=== PATIENT | male | born 1950 | race Caucasian/White ===

== ENCOUNTER → 2017-08-12 | Outpatient (CLI) | payer OTHER, MEDICARE | LOC: BHFA 14:00 | PROVIDERS: ATTEND Internal Medicine Cardiovascular Disease | DX: I48.92 Unspecified atrial flutter (principal) ==

== ENCOUNTER 2017-10-20 08:26 | Day surgery (SDC) | payer OTHER, MEDICARE ==
[2017-10-20] MEDS ORDERED: ATROPINE SULFATE 1 MG/10 ML SYR IVP ONE (08:31)
[2017-10-20] MEDS ORDERED: fentaNYL 100 MCG/2 ML INJ IVP ONE (08:31)
[2017-10-20] MEDS ORDERED: MIDAZOLAM 2 MG/2 ML VIAL IVP ONE (08:31)
[2017-10-20] MEDS ORDERED: BENZOCAINE UNIT DOSE SPRAY HURRICAINE MM ONE (08:31)
[2017-10-20] MEDS ORDERED: NS 500 ML IV ONE (08:31)
--- NOTE | 2017-10-20 08:49 | CPEKG ---
Heart Rate: 93 RR Interval: 645 QRSD Interval: 94 QT Interval: 484 QTC Interval: 603 QRS [place]: -5 T Wave [place]: -85 EKG Severity - ABNORMAL ECG - EKG Impression: ATRIAL FIBRILLATION EKG Impression: VENTRICULAR BIGEMINY EKG Impression: ABNORMAL T, PROBABLE ISCHEMIA, WIDESPREAD EKG Impression: BORDERLINE ST ELEVATION, INFERIOR LEADS EKG Impression: PROLONGED QT INTERVAL Electronically Signed By: Figueroa Falcon 20-Oct-2017 09:29:52
[2017-10-20 09:10] LABS: INR 2.38 (0.83-1.16)
--- NOTE | 2017-10-20 10:04 | PDANEPAE ---
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, repaired surgically at age 9 - Pulmonary History Hx COPD: No Hx Recent Upper Respiratory Infection: No Hx Sleep Apnea: No - Other Health History Other Health History: Gout ANE Review of Systems Review of Systems: - Exercise capacity Exercise capacity: >=4 METS ANE Patient History - Allergies Allergies/Adverse Reactions: Sulfa (Sulfonamide Antibiotics) Allergy (Verified 10/06/17 15:23) - Home Medications Home medications: home medication list seen and reviewed Home Medications: Aspirin [Aspirin 81mg (*)] 81 mg PO DAILY 10/20/17 [Last Taken 10/19/17] Lisinopril 20 mg PO 10/20/17 [Last Taken 10/19/17] Metformin HCl [Fortamet] 500 mg PO DAILY 10/20/17 [Last Taken 10/19/17] Warfarin Sodium [Coumadin 5MG (*)] 5 mg PO DAILY16 10/20/17 [Last Taken 10/19/17 ] - NPO status NPO Status: no food or drink >8 hours - Anes Hx Anes Hx: no prior problems - Smoking Hx Smoking Status: Never smoked - Alcohol Use Alcohol Use: Rarely - Family Anes Hx Family Anes Hx: none ANE Labs/Vital Signs - Labs Result Diagrams: 10/20/17 08:16 - Vital Signs Vital Signs: reviewed preoperatively; see RN documention for details Height: 162.56 cm Weight: 58.967 kg ANE Physical Exam - Airway Neck exam: FROM Mallampati Score: Class 2 Mouth exam: normal dental/mouth exam - Pulmonary Pulmonary: no respiratory distress, clear to auscultation - Cardiovascular Cardiovascular: regular rate and rhythym, no murmur, rub, or gallop - ASA Status ASA Status: III ANE Anesthesia Plan Anesthesia Plan: GA with mask
[2017-10-20] MEDS ORDERED: PROPOFOL/EMULSION 500 MG/50 ML BOTTLE IV ONE (10:08)
--- NOTE | 2017-10-20 10:09 | PDHPUP ---
History & Physical Update H&P update statement: This history and physical update is based on an assessment of the patient which was completed after admission or registration (within 24 hours), but prior to the surgery/procedure. H&P update: H&P reviewed & patient examined, no change in patient's condition since H&P completed (Reviewed my office note from earlier this month)
--- NOTE | 2017-10-20 10:44 | CPIP ---
[f rep st] INVASIVE CARDIAC PROCEDURE DATE OF PROCEDURE: 10/20/2017 The patient presented for a ARABELLA-guided cardioversion. He was anxious about the cardioversion and, th erefore, only the ARABELLA was performed. /[id number]/MODL
--- NOTE | 2017-10-20 10:49 | POSTANESTH ---
Post Anesthetic Evaluation Cardiovascular Status: Normal, Stable, Similar to Pre-Op Cond Respiratory Status: Normal, Stable, Similar to Pre-op Cond. Level of Consciousness/Mental Status: Can Participate in Eval, Alert and Oriented Pain Control: Adequate, Prn Tx Ordered Nausea/Vomiting Control: Adequate, Prn Tx Ordered Complications Possibly Related to Anesthesia: None Noted
--- NOTE | 2017-10-22 08:34 | ECHO ---
[email or web address] [address] [address] Main: [phone] Fax: Transesophageal Echocardiography Name: ROSELINE NIELSEN MR#: [id number] Study Date: 10/20/2017 Study Time: 10:09 AM Date of : 1950 Age: 67 year(s) Height: ( ) Weight: ( ) BSA: Gender: Male Examination: ARABELLA Indication: TAPVR Image Quality: Contrast: Requested by: Luz Duque Heart Rate: Rhythm: BP: / Procedure Staff Table Operator: Lenin Tovar RDCS Reading Physician: Luz Duque MD Requesting Provider: Luz Duque MD ARABELLA Exam Details Conclusions: Normal global systolic LV function. No regional wall motion abnormality. Moderately dilated right ventricle. Moderately reduced RV function. No pulmonary vein ostia were demonstrated . No thrombus in left appendage. The right atrium is moderately dilated. The SVC is dilated. The mid interatrial septum is thickened consistent with prior cardiac surgery (correction of TAPVR). In the bicaval view, interatrial baffle with laminar flow is seen. Bubble study demonstrates expected flow from RA to LA. No obvious baffle leak . Moderate to severe tricuspid valve regurgitation. The pulmonary artery pressure is moderately to severely increased. Estimated PA systolic pressure is 61 mmHg. The patient declined DCCV at this time Measurements: Chambers Valvular Assessment AV/MV Valvular Assessment TV/PV Normal Normal Normal Name Value Range Name Value Range Name Value Range TR Vmax: 3.57 mm/s ( - ) TR PGmax: 51 mmHg ( - ) syst. PAP: 61 mmHg ( - ) Additional Measurements: Patient: ROSELINE NIELSEN Study Date: 10/20/2017 Page 1 of 2 10:09 AM Valvular Assessment TV/PV Name Value CVP (est.): 10 mmHg Findings: Left Ventricle: Normal global systolic LV function. No regional wall motion abnormality. Right Ventricle: Moderately dilated right ventricle. Moderately reduced RV function. Left Atrium: No pulmonary vein ostia were demonstrated . Left Atrial Appendage: No thrombus in left appendage. Right Atrium: The right atrium is moderately dilated. The SVC is dilated. The mid interatrial septum is thickened consistent with prior cardiac surgery (correction of TAPVR). In the bicaval view, interatrial baffle with laminar flow is seen. Bubble study demonstrates expected flow from RA to LA. No obvious baffle leak . Mitral Valve: The mitral valve is normal in appearance and function. Aortic Valve: The aortic valve is tri-leaflet. The aortic valve is normal in appearance and function. Tricuspid Valve: Moderate to severe tricuspid valve regurgitation. The pulmonary artery pressure is moderately to severely increased. Estimated PA systolic pressure is 61 mmHg. Pulmonic Valve: The pulmonic valve is normal in appearance and function. Aorta: The aorta is normal. Pericardium: No pericardial effusion. l1n (No Signature Object) Patient: ROSELINE NIELSEN Study Date: 10/20/2017 Page 2 of 2 10:09 AM [id number]
== END 2017-10-20 12:07 | disposition home or self-care (01) ==
LOC: FCATH 08:26
PROVIDERS: ATTEND Internal Medicine Cardiovascular Disease
PROC: B246ZZ4 Ultrasonography of Right and Left Heart, Transesophageal (ICD-10-PCS; principal; 2017-10-20)
DX: I48.92 Unspecified atrial flutter (principal); I07.1 Rheumatic tricuspid insufficiency; I10 Essential (primary) hypertension; I27.20 Pulmonary hypertension, unspecified; Q26.9 Congenital malformation of great vein, unspecified; E11.9 Type 2 diabetes mellitus without complications; M10.9 Gout, unspecified; Z79.01 Long term (current) use of anticoagulants; Z79.82 Long term (current) use of aspirin; Z87.74 Personal history of (corrected) congenital malformations of heart and circulatory system; Z88.2 Allergy status to sulfonamides; Z53.29 Procedure and treatment not carried out because of patient's decision for other reasons
CPT/HCPCS: J2704

== ENCOUNTER 2017-11-24 08:11 | Observation (INO) | payer OTHER, MEDICARE ==
[2017-11-24] MEDS ORDERED: MIDAZOLAM 2 MG/2 ML VIAL IVP ONE (08:13)
[2017-11-24] MEDS ORDERED: NS 500 ML IV ONE (08:13)
[2017-11-24] MEDS ORDERED: fentaNYL 100 MCG/2 ML INJ IVP ONE (08:13)
[2017-11-24] MEDS ORDERED: ATROPINE SULFATE 1 MG/10 ML SYR IVP ONE (08:13)
--- NOTE | 2017-11-24 08:37 | CPEKG ---
Heart Rate: 61 RR Interval: 984 QRSD Interval: 108 QT Interval: 468 QTC Interval: 472 QRS [place]: 48 T Wave [place]: -36 EKG Severity - ABNORMAL ECG - EKG Impression: ATRIAL FLUTTER EKG Impression: VENTRICULAR PREMATURE COMPLEX EKG Impression: INCOMPLETE RIGHT BUNDLE BRANCH BLOCK Electronically Signed By: Neo Fry 24-Nov-2017 15:02:23
[2017-11-24 09:03] LABS: INR 1.41 (0.83-1.16); PROTIME(PATIENT) 17.4 SEC (12.0-15.0)
--- NOTE | 2017-11-24 10:07 | PDANEPAE ---
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, repaired surgically at age 9 - Pulmonary History Hx COPD: No Hx Recent Upper Respiratory Infection: No Hx Sleep Apnea: No - Other Health History Other Health History: Gout ANE Review of Systems Review of Systems: ANE Patient History - Allergies Allergies/Adverse Reactions: Sulfa (Sulfonamide Antibiotics) Allergy (Verified 10/06/17 15:23) - Home Medications Home medications: home medication list seen and reviewed Home Medications: Aspirin [Aspirin 81mg (*)] 81 mg PO DAILY 10/20/17 [Last Taken 10/19/17] Lisinopril 20 mg PO 10/20/17 [Last Taken 10/19/17] Metformin HCl [Fortamet] 500 mg PO BID 10/20/17 [Last Taken 10/19/17] Warfarin Sodium [Coumadin 5MG (*)] 2.5 mg PO DAILY16 10/20/17 [Last Taken 18:00] - NPO status NPO Status: no food or drink >8 hours - Anes Hx Anes Hx: no prior problems - Smoking Hx Smoking Status: Never smoked ANE Labs/Vital Signs - Labs Result Diagrams: 11/24/17 08:45 - Vital Signs Height: 162.56 cm Weight: 59.421 kg ANE Physical Exam - Airway Neck exam: decreased ROM Mallampati Score: Class 2 Mouth exam: poor dentition - Pulmonary Pulmonary: no respiratory distress - Cardiovascular Cardiovascular: irregularly irregular - ASA Status ASA Status: III (very poor dentition) ANE Anesthesia Plan Anesthesia Plan: GA with mask (RBA discussed including elevated risk of dental injury given poor dentition)
[2017-11-24] MEDS ORDERED: LIDOCAINE 2% 100 MG/5 ML SYR ONE (10:08)
[2017-11-24] MEDS ORDERED: PROPOFOL 200 MG/20 ML VIAL ONE (10:08)
--- NOTE | 2017-11-24 10:14 | PDGENHP ---
History & Physical Chief Complaint: Atrial flutter. Congenital heart disease History of Present Illness: 67-year-old male with congenital heart disease. 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 He has hypertension and atrial flutter with slow ventricular response. He has been evaluated at the [facility] in [place] and further management with an MRI and right heart catheterization is pending. However, he does require cardioversion prior to his cardiac MRI. He will require ARABELLA prior to cardioversion as his INR today is 1.4. Pertinent Past, Social, Family History: reviewed Relevant Physical Exam: RRR soft holosystolic murmur LLSB Cardiorespiratory Assessment: stable. Evaluate by anesthesia.
--- NOTE | 2017-11-24 10:41 | PDTEE1 ---
ARABELLA Cardioversion Procedure Procedure: electrical cardioversion, transesophageal echo Indications: other (Atrial flutter) Consent: signed and in chart Anticoagulation: warfarin Procedural Details: Sedation provided by the anesthesia service. Pads were placed in anterior- posterior position. ARABELLA probe was advanced and standard images obtained. There is no evidence of left atrial or left atrial appendage thrombus. Synchronized cardioversion attempt #1: 200J Results: other (Intermittent junctional escape and ectopic atrial rhythm.) Conclusions: successful ARABELLA cardioversion
--- NOTE | 2017-11-24 10:50 | CPEKG ---
Heart Rate: 50 RR Interval: 1200 P-R Interval: 196 QRSD Interval: 106 QT Interval: 512 QTC Interval: 467 P [place]: -83 QRS [place]: 48 T Wave [place]: 34 EKG Severity - ABNORMAL ECG - EKG Impression: ECTOPIC ATRIAL RHYTHM EKG Impression: INCOMPLETE RIGHT BUNDLE BRANCH BLOCK Electronically Signed By: Neo Fry 24-Nov-2017 15:01:23
[2017-11-24] MEDS ORDERED: ACETAMINOPHEN 325 MG TAB PO PRN (11:15)
[2017-11-24] MEDS ORDERED: ENOXAPARIN 60 MG/0.6 ML SYR SC ONE (11:15)
[2017-11-24] MEDS ORDERED: PROTOCOL MAGNESIUM 1 DOSE IV PRN (13:58)
--- NOTE | 2017-11-24 15:16 | ECHO ---
[email or web address] [address] [address] Main: [phone] Fax: Transesophageal Echocardiography Name: ROSELINE NIELSEN MR#: [id number] Study Date: 11/24/2017 Study Time: 09:50 AM Date of : 1950 Age: 67 year(s) Height: ( ) Weight: ( ) BSA: Gender: Male Examination: ARABELLA Indication: Pre Cardioversion, TAPVR Image Quality: Contrast: Requested by: Luz Duque Heart Rate: Rhythm: BP: / Procedure Staff Enterprise Systems Manager: Lenin Tovar RDCS Reading Physician: Luz Duque MD Requesting Provider: ARABELLA Exam Details Conclusions: Normal global systolic LV function. Moderately dilated right ventricle. Moderately reduced RV function. The interatrial septum is thickened consistent with post operative changes. A bubble study shows a small amount of right to left shunting. There is a baffle seen in the LA. . No thrombus in left appendage. The right atrium is moderately dilated. Mild mitral valve regurgitation is present. Moderate to severe tricuspid valve regurgitation. Moderate pulmonic valve regurgitation is noted. Proceed with cardioversion Measurements: Chambers Valvular Assessment AV/MV Valvular Assessment TV/PV Normal Normal Normal Name Value Range Name Value Range Name Value Range Additional Measurements: Findings: Left Ventricle: Normal global systolic LV function. Right Ventricle: Patient: ROSELINE NIELSEN Study Date: 11/24/2017 Page 1 of 2 09:50 AM Moderately dilated right ventricle. Moderately reduced RV function. Left Atrium: The interatrial septum is thickened consistent with post operative changes. A bubble study shows a small amount of right to left shunting. There is a baffle seen in the LA. . Left Atrial Appendage: No thrombus in left appendage. Right Atrium: The right atrium is moderately dilated. Mitral Valve: Mild mitral valve regurgitation is present. Aortic Valve: The aortic valve is tri-leaflet. The aortic valve is normal in appearance and function. Tricuspid Valve: Moderate to severe tricuspid valve regurgitation. Pulmonic Valve: Moderate pulmonic valve regurgitation is noted. Aorta: Minimal plaque in the descending aorta. Pericardium: No pericardial effusion. Exam Comments: l1n (No Signature Object) Patient: ROSELINE NIELSEN Study Date: 11/24/2017 Page 2 of 2 09:50 AM [id number]
[2017-11-24] MEDS ORDERED: WARFARIN SODIUM 5 MG TAB PO SCH (17:00)
[2017-11-24] MEDS: metFORMIN HCL 500 MG TAB PO SCH (17:29)
[2017-11-24] MEDS: ENOXAPARIN 60 MG/0.6 ML SYR SC SCH (21:34)
[2017-11-25 04:38] LABS: INR 1.51 (0.83-1.16); PROTIME(PATIENT) 18.4 SEC (12.0-15.0)
[2017-11-25 05:14] LABS: PLATELET COUNT 130 10^3/uL (150-400)
[2017-11-25] MEDS ORDERED: LISINOPRIL 20 MG TAB PO SCH (06:00)
[2017-11-25 07:07] VITALS: BP 161/75
[2017-11-25] MEDS ORDERED: MAGNESIUM SULF 1 GM/DEXTROSE 100 ML IV ONE (07:10)
[2017-11-25] MEDS: metFORMIN HCL 500 MG TAB PO SCH (07:43)
[2017-11-25] MEDS ORDERED: CHOLECALCIFEROL VIT D3 2,000 UNITS TAB/CAP PO SCH (09:00)
[2017-11-25] MEDS: ENOXAPARIN 60 MG/0.6 ML SYR SC SCH (10:45)
--- NOTE | 2017-11-25 11:02 | ASDISCHSUM ---
Discharge Information Plan Status:Home with No Needs Medically Cleared to Leave:11/25/2017 Discharge Date:11/25/2017 CM D/C Disposition:Home, Routine, Self-Care ADT D/C Disposition:Home, Routine, Self-Care Projected Discharge Date:11/25/2017 Transportation at D/C: Discharge Delay Reason: Follow-Up Date:11/25/2017 Discharge Slot: Final Diagnosis: Placement Information Patient Contact Information Contact Name:SANJAY Relationship: Address:[address] Work Phone: City:[facility] Alternate Phone: [facility]/Zip Code:[place] [address] Email: Financial Information Financial Class:Medicare Primary Plan Desc:MEDICARE OUTPATIENT Primary Plan Number:[id number] Secondary Plan Desc:LEONARD/JOSE SUPPLEMENT Secondary Plan Number:[id number] Assessment Information LACE LACE Length of stay for Answers: Less than 1 day current admission Acuity / Level of Answers: No Care: Did the patient have an inpatient admission? Comorbidities - select Answers: Other Notes: aflutter, congenital all that apply heart disease, HTN # of Emergency department Answers: 1-2 visits in the last 6 months Score: 2 Date Signed: 11/25/2017 11:00 AM Electronically Signed By:Jessie Lama RN Intervention Information Intervention Type:*RAD-Signed Date of Service:11/25/2017 10:14 AM Patient Type:Observation Staff Member:Allie Lofton Hours: Discipline: Severity: Comment:
--- NOTE | 2017-11-25 12:51 | GDS ---
[f rep st] DISCHARGE SUMMARY DIAGNOSIS: Atrial fibrillation. DISCHARGE DIAGNOSIS: Status post successful atrial fibrillation. COURSE OF HOSPITALIZATION: This gentleman is a 67-year-old male who has known congenital heart disea se. He is followed by the [facility] in [place]. 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 He has known hypertension. On admission, he had atrial flutter with slow ventricular response. Through the [facility], he is to have a cardiac MRI and right heart catheterization. P rior to the cardiac MRI, a required cardioversion is necessary. This had been communicated to Dr. Yg Duque by the [facility] in [place]. She did take him to the [facility], where he had a ARABELLA followed by successful cardioversion. On admit, 11/24/2017, his INR was 1.4. He is on warfar in for anticoagulation and is followed regularly in the anticoagulation Clinic. His Coumadin has bee n increased to 3 mg daily and he will have an INR on 11/27/2017, at the [facility] anticoagulation Clinic. He is bridged on Lovenox and will continue on Lovenox bridge until his C oumadin reaches 2.0. At this time, he currently is stable for discharge. PHYSICAL EXAMINATION: VITAL SIGNS: On day of discharge, his blood pressure is 161/75, heart rate 52 with PVCs noted, oxygen saturation 93% on room air, temperature 36.4. HEART: Rate is regular with ectopy. No murmurs, rubs, or gallops are noted. No peripheral edema. LUNGS: Sounds are clear to a uscultation. No wheezes, rales, or rhonchi. DISCHARGE PLAN: He will go home on Coumadin 3 mg daily with a Lovenox bridge of 60 mg twice daily un til his INR reaches 2.0. He will have his Coumadin level checked on Thursday at the [facility] anticoagulation Clinic. He does have an appointment with his [place] broadcast operations director next week wh o will continue to follow him. He does have hypertension with his systolic ranging from 126-161. He will monitor his blood pressure at home and follow up with his primary care physician, Dr. Harper in [place]. At this time, he currently is stable for discharge. /[id number]/MODL
[2017-11-25] MEDS ORDERED: WARFARIN SODIUM 3 MG TAB PO SCH (16:00)
== END 2017-11-25 11:58 | disposition home or self-care (01) ==
LOC: FCATH 08:11 → F2W 11:16
PROVIDERS: ADMIT Internal Medicine Cardiovascular Disease; ATTEND Internal Medicine Cardiovascular Disease
PROC: B245ZZ4 Ultrasonography of Left Heart, Transesophageal (ICD-10-PCS; principal; 2017-11-24)
PROC: 5A2204Z Restoration of Cardiac Rhythm, Single (ICD-10-PCS; principal; 2017-11-24)
DX: I48.91 Unspecified atrial fibrillation (principal); I34.0 Nonrheumatic mitral (valve) insufficiency; I50.9 Heart failure, unspecified; Z79.01 Long term (current) use of anticoagulants; Z87.798 Personal history of other (corrected) congenital malformations
CPT/HCPCS: J0461; J1650; J2001; J2704

== ENCOUNTER → 2018-01-22 | Outpatient (CLI) | payer OTHER, MEDICARE ==
[~2018-01-22] MED LIST: IOPAMIDOL (ISOVUE 370) 100 ML BTL IV ONE
== END ==
LOC: FIMAGING 08:22
PROVIDERS: ATTEND Internal Medicine Cardiovascular Disease
DX: R91.1 Solitary pulmonary nodule (principal); I26.09 Other pulmonary embolism with acute cor pulmonale; R59.0 Localized enlarged lymph nodes; N28.89 Other specified disorders of kidney and ureter
CPT/HCPCS: 71275; Q9967; 82565-PO

== ENCOUNTER 2018-03-04 11:40 | Inpatient (IN) | payer OTHER, MEDICARE ==
[2018-03-04] MEDS ORDERED: NS 1,000 ML IV ONE ×2 (11:54→13:02)
--- NOTE | 2018-03-04 11:59 | EDPHY ---
H & P Stated Complaint: n/v x 1 day, at clinic pt hr dropping into 30's - call ems, no pain/sob Time Seen by Provider: 03/04/18 11:53 HPI/ROS: CHIEF COMPLAINT: Vomiting, abdominal pain HISTORY OF PRESENT ILLNESS: 67-year-old male with diabetes presents with vomiting and abdominal pain. Onset of vomiting at 0600 this morning. Unable to tolerate oral fluids. Onset of generalized abdominal pain, starting 2 hr prior to arrival. Seen at the [facility] and transported to the ED by ambulance. Fentanyl 50 mcg IV and Zofran 4 mg IV prior to arrival. Abdominal pain and nausea have now resolved. In transport, the patient had episodes of bradycardia down to the 30s. Pacemaker was placed 1 month ago. REVIEW OF SYSTEMS: complete 10 point ROS negative except at noted in the HPI - Medical/Surgical History Hx Asthma: No Hx Chronic Respiratory Disease: No Hx Diabetes: Yes Hx Cardiac Disease: Yes Hx Renal Disease: No Hx Cirrhosis: No Hx Alcoholism: No Hx HIV/AIDS: No Hx Splenectomy or Spleen Trauma: No Other PMH: HTN, hyperlipidemia, DM2, congenital heart defect and repair, A-fib/ flutter, PE, pacemaker placement - Social History Smoking Status: Never smoked - Physical Exam Exam: General Appearance: Alert, pleasant Eyes: Pupils equal and round, no conjunctival pallor or injection ENT, Mouth: Poor dentition, Mucous membranes moist Neck: Normal inspection Respiratory: Ecchymoses on anterior chest wall, Lungs are clear to auscultation Cardiovascular: Regular rate and rhythm Gastrointestinal: Abdomen is soft, mild epigastric tenderness Neurological: A&O, nonfocal exam Skin: Warm and dry Extremities: Nontender, no pedal edema Psychiatric: Mood and affect normal Constitutional: Initial Vital Signs Temperature (C) 36.4 C 03/04/18 11:45 Heart Rate 81 03/04/18 11:45 Respiratory Rate 18 03/04/18 11:45 Blood Pressure 128/76 H 03/04/18 11:45 O2 Sat (%) 92 03/04/18 11:45 O2 Delivery Mode Nasal Cannula O2 (L/minute) 1.5 Allergies/Adverse Reactions: Sulfa (Sulfonamide Antibiotics) Allergy (Verified 03/04/18 11:50) Fever Home Medications: Medication Instructions Recorded Aspirin [Aspirin 81mg (*)] 81 mg PO DAILY 10/20/17 Cholecalciferol Vit D3 [Vitamin D3 2,000 units PO DAILY 11/24/17 2000 units tab (OTC)] Lisinopril [Zestril 20 mg (*)] 20 mg PO DAILY06 11/24/17 Warfarin Sodium [Coumadin 3MG (*)] 3 mg PO DAILY@16 01/14/18 Acetaminophen [Tylenol 325mg (*)] 650 mg PO Q4HRS PRN tab 02/10/18 Indomethacin [Indocin 25 mg (*)] 25 mg PO PRN PRN 03/04/18 Warfarin Sodium [Coumadin 1MG (*)] 0.5 mg PO MOWEFRSA 03/04/18 metFORMIN HCL [Metformin HCl] 500 mg PO BIDMEAL 03/04/18 Medical Decision Making - Diagnostics EKG Interpretation: EKG interpreted by me reveals Imaging Results: Right upper quadrant ultrasound read by the radiologist reveals acalculous cholecystitis. Imaging: I viewed and interpreted images myself ED Course/Re-evaluation: This patient presents with vomiting and abdominal pain, now better after IV Zofran and fentanyl. Abdominal exam is benign. Will observe. He also experienced episodes of bradycardia in transport. Stat EKG reveals no evidence of ischemia or dysrhythmia. The pacemaker rep was called for pacemaker interrogation. 1220: [facility] interrogated pacemaker. Pacemaker functioning normally. 1pm: lipase elevated, c/w pancreatitis, d/w pt. No prior h/o pancreatitis and not a heavy drinker. IV normal saline 1 L given. RUQ sono ordered. The hospitalist service was consulted for admission. Troponin elevated, EKG reviewed again and reveals no evidence of ischemia. No chest pain or shortness of breath. Will certainly need further cardiac evaluation. Will admit to PCU. Differential Diagnosis: Differential diagnosis includes though it is not limited to appendicitis, cholecystitis, diverticulitis, pyelonephritis, bowel perforation, small bowel obstruction, ACS. - Data Points Laboratory Results: Laboratory Results 03/05/18 02:28 03/05/18 02:28 Medications Given: Cholecalciferol (Vitamin D) 2,000 units PO DAILY REILLY Stop: 09/01/18 08:59 Last Admin: 03/06/18 09:56 Dose: 2,000 units Hydromorphone HCl (Dilaudid) 0.2 - 1 mg IVP Q2 PRN PRN Reason: Pain, Severe Unable to Take PO Stop: 03/14/18 14:28 Last Admin: 03/05/18 00:22 Dose: 0.5 mg Hydromorphone HCl (Dilaudid) 2 mg PO Q4HRS PRN PRN Reason: Pain, Severe Able to Take PO Stop: 03/14/18 14:28 Last Admin: 03/05/18 23:41 Dose: 2 mg Discontinued Medications Aspirin (Aspirin) 81 mg PO DAILY REILLY Stop: 09/01/18 08:59 Last Admin: 03/05/18 07:53 Dose: 81 mg Fentanyl (Sublimaze) 50 mcg IVP ONCE ONE Stop: 03/04/18 13:25 Last Admin: 03/04/18 13:28 Dose: 50 mcg Sodium Chloride (Ns) 1,000 mls @ 0 mls/hr IV EDNOW ONE; Wide Open PRN Reason: Protocol Stop: 03/04/18 11:55 Last Admin: 03/04/18 12:01 Dose: 1,000 mls Sodium Chloride (Ns) 1,000 mls @ 0 mls/hr IV ONCE ONE; Wide Open PRN Reason: Protocol Stop: 03/04/18 13:03 Last Admin: 03/04/18 13:11 Dose: 1,000 mls Sodium Chloride (Ns) 1,000 mls @ 200 mls/hr IV CONT REILLY Stop: 08/31/18 14:29 Last Admin: 03/05/18 07:07 Dose: 1,000 mls Sodium Bicarbonate 150 meq/ (Dextrose) 1,150 mls @ 50 mls/hr IV CONT [facility] Stop: 09/01/18 08:44 Last Admin: 03/06/18 06:23 Dose: 1,150 mls Calcium Gluconate (Calcium Gluconate 1 Gm (Premix)) 50 mls @ 100 mls/hr IV ONCE ONE Stop: 03/05/18 09:11 Last Admin: 03/05/18 09:17 Dose: Not Given Calcium Gluconate 1 gm/ (Dextrose) 60 mls @ 120 mls/hr IV ONCE ONE Stop: 03/05/18 09:59 Last Admin: 03/05/18 10:18 Dose: 60 mls Phytonadione (Vitamin K) 2.5 mg PO ONCE ONE Stop: 03/06/18 14:03 Last Admin: 03/06/18 14:25 Dose: 2.5 mg Point of Care Test Results: Chemistry 03/04/18 13:55 POC Troponin I 0.39 ng/mL H ng/mL (0.00-0.08) Urine Dip Leukocytes (Negative) Negative Blood (Negative) 1+ Departure - Departure Disposition: [facility] Inpatient Acute Clinical Impression: Elevated troponin Pancreatitis, acute Qualifiers: Pancreatitis type: unspecified pancreatitis type Acute pancreatitis complication: unspecified Qualified Code(s): K85.90 - Acute pancreatitis without necrosis or infection, unspecified Condition: Fair
[2018-03-04 12:24] LABS: PLATELET COUNT 205 10^3/uL (150-400)
[2018-03-04] MEDS ORDERED: fentaNYL 100 MCG/2 ML INJ IVP ONE (13:24)
[2018-03-04] MEDS ORDERED: fentaNYL 100 MCG/2 ML INJ ONE (13:26)
[2018-03-04] MEDS ORDERED: PROMETHAZINE HCL 25 MG TAB PO PRN (14:29)
[2018-03-04] MEDS ORDERED: ONDANSETRON DISINTEGRATING 4 MG TAB PO PRN (14:29)
[2018-03-04] MEDS ORDERED: ONDANSETRON 4 MG/2 ML VIAL IVP PRN (14:29)
[2018-03-04] MEDS ORDERED: PROMETHAZINE HCL 25 MG/ML INJ IVP PRN (14:29)
[2018-03-04] MEDS ORDERED: NS 1,000 ML IV SCH (14:30)
--- NOTE | 2018-03-04 14:56 | CPEKG ---
Test Reason : OPEN Blood Pressure : / mmHG Vent. Rate : 092 BPM Atrial Rate : 152 BPM P-R Int : 232 ms QRS Dur : 100 ms QT Int : 448 ms P-R-T Axes : 102 106 268 degrees QTc Int : 555 ms Afib/flut and V-paced complexes Right axis deviation Low voltage, extremity leads Nonspecific repol abnormality, diffuse leads Prolonged QT interval Confirmed by Oxana Alexander ([id number]) on 03/04/2018 2:55:49 PM Referred By: Confirmed By:Oxana Alexander
--- NOTE | 2018-03-04 16:17 | ECHO ---
[email or web address] [address] [address] Main: [phone] Fax: Transthoracic Echocardiogram Name: ROSELINE NIELSEN MR#: [id number] Study Date: 03/04/2018 Study Time: 02:36 PM Date of : 1950 Age: 67 year(s) Height: 162.6 cm (64 in.) Weight: 55.79 kg (123 lb.) BSA: 1.59 m2 Gender: Male Examination: Echo Indication: elevated troponin Image Quality: Adequate Contrast: Requested by: Drew Shen BP: 144 mmHg/73 mmHg Heart Rate: Rhythm: Indication: elevated troponin Procedure Staff General Education Instructor: Radha Perez RD Reading Physician: Tr Buchanan MD Requesting Provider: Conclusions: No pericardial effusion. There is severe LV dysfunction with ejection fraction at best 34%. There is apical akinesis. There is a moderate to severely dilated right ventricle with decreased RV function. Pacing wire within the right heart. There is severe tricuspid regurgitation with right ventricular systolic pressure of 59 mm of mercury and right atrial enlargement. Exam consistent with a Takotsubo cardiomyopathy. Measurements: Chambers Valvular Assessment AV/MV Valvular Assessment TV/PV Normal Normal Normal Name Value Range Name Value Range Name Value Range Ao Debra (MM): 3.5 cm (2.2 cm-3.7 AV Vmax: 1.05 m/s (1 m/s-1.7 TR Vmax: 3.32 mm/s ( - ) cm) m/s) TR PGmax: 44 mmHg ( - ) IVSd (2D): 0.8 cm (0.6 cm-1.1 AV maxP mmHg ( - ) syst. PAP: 59 mmHg ( - ) cm) LVOT Vmax: 0.74 m/s (0.7 m/s-1.1 PV Vmax: 1.02 m/s (0.6 m/s-0.9 LVDd (2D): 4.6 cm (4.2 cm-5.9 m/s) m/s) cm) GLENN (Vmax): 1.8 cm2 ( - ) PV PGmax: 4 mmHg ( - ) LVDs (2D): 4.0 cm (2.1 cm-4 MV E Vmax: 0.85 m/s ( - ) cm) MV A Vmax: 0.28 m/s ( - ) LVPWd (2D): 0.7 cm (0.6 cm-1 MV E/A: 3.04 ( - ) cm) LVOTd 1.8 cm 1.8 cm mm LVEF (BP): 34 % (>=55 %) RVDd(2D): 4.5 cm (1.9 cm-3.8 cmmm) Continued Measurements: Chambers Valvular Assessment AV/MV Valvular Assessment TV/PV Name Value Name Value Name Value LADs Lon.5 cm MV DecTime: 208 m/s CVP (est.): 15 mmHg Patient: ROSELINE NIELSEN Study Date: 03/04/2018 Page 1 of 2 02:36 PM LA Area: 20.0 cm2 MV E' Septal: 0.07 m/s LA Volume: 58 ml MV E/E' Septal: 12.50 LA Volume Index: 36.5 ml/m2 MV E/E' Lateral: 10.40 TAPSE: 1.6 cm Findings: Left Ventricle: Normal size left ventricle. No LV hypertrophy. Moderately to severely reduced systolic function. EF is 34 %. Unable to assess diastolic dysfunction. Large area of apical hypokinesis (mid george/infero septum, mid anterior, mid anterolateral to apex) consistent with CAD versus Takotsubo. Abnormal septal motion noted. Right Ventricle: Moderate to severely dilated right ventricle. There is a pacemaker lead noted in the right ventricle. Apical hypokinesis with mid to basal RV mildly hypokinetic; CAD versus Brooks's sign. Left Atrium: The left atrium is mildly dilated. Questionable color flow across the IAS Shadowing in the LA most likely from bafle. Right Atrium: The right atrium is severely dilated. There is a pacemaker lead noted in the right atrium. Mitral Valve: The mitral valve is normal in appearance. There is no mitral valve regurgitation. No mitral stenosis is present. Aortic Valve: The aortic valve is normal in appearance. There is no aortic valve regurgitation. No aortic valve stenosis is present. Tricuspid Valve: The tricuspid valve leaflets do not seem to coapt due to RV dilatation. Severe tricuspid regurgitation is present. Right ventricular systolic pressure measures 59mmHg. The pulmonary artery pressure is moderately to severely increased. Pulmonic Valve: Pulmonary valve not well visualized. Moderate pulmonic valve regurgitation is noted. Aorta: Normal size aortic root measuring 3.5 cm. IVC: The IVC is dilated. There is less than 50% respiratory excursion. Pericardium: Trivial pericardial effusion. There is a pleural effusion. (No Signature Object) Patient: ROSELINE NIELSEN Study Date: 03/04/2018 Page 2 of 2 02:36 PM [id number]
--- NOTE | 2018-03-04 16:30 | PDGENHP ---
History and Physical - Chief Complaint Acute vomiting - History of Present Illness Primary care provider: Dr. Giovani Harper Primary golf caddy: Dr. Julius Leonardo HPI: 67-year-old male presenting with acute vomiting characterized as nonbloody emesis with associated abdominal pain and nausea, with onset of symptoms at 6:00 a.m. On the day of presentation and duration persistent thereafter. The patient reports that when he 1st awoke he had profuse, persistent vomiting, and then he noted pain located in the mid epigastric area, characterized as pressure, occurring in waves. He reports that prior to onset of symptoms, he had otherwise had an uneventful evening, and had not been experiencing any GI symptoms prior to going to bed. He reports that he had had a relatively normal evening meal, consisting of a gyro, scrambled eggs, vegetables, luiz bread, no alcohol. He denies any recent additions to his medications. On the day prior to presentation, he underwent CT angiogram and V/ Q scan through [facility]. The patient initially presented to his primary care provider office, where he received 2 L normal saline and Zofran. He was subsequently triaged to the emergency department, and emergency responders reported that his heart rate was in the 30s. The patient received fentanyl and Zofran in the emergency department, and his symptoms were somewhat alleviated. History Information - Allergies/Home Medication List Allergies/Adverse Reactions: Sulfa (Sulfonamide Antibiotics) Allergy (Verified 03/04/18 11:50) Fever Home Medications: Aspirin [Aspirin 81mg (*)] 81 mg PO DAILY 10/20/17 [Last Taken 03/03/18] Cholecalciferol Vit D3 [Vitamin D3 2000 units tab (OTC)] 2,000 units PO DAILY [Last Taken 02/08/18] Lisinopril [Zestril 20 mg (*)] 20 mg PO DAILY06 11/24/17 [Last Taken 02/08/18] Warfarin Sodium [Coumadin 3MG (*)] 3 mg PO DAILY@16 01/14/18 [Last Taken ] Indomethacin [Indocin 25 mg (*)] 25 mg PO PRN PRN 03/04/18 [Last Taken Unknown] Warfarin Sodium [Coumadin 1MG (*)] 0.5 mg PO MOWEFRSA 03/04/18 [Last Taken Unknown] metFORMIN HCL [Metformin HCl] 500 mg PO BIDMEAL 03/04/18 [Last Taken Unknown] I have personally reviewed and updated: family history, medical history, social history, surgical history - Past Medical History diabetes type 2, pulmonary embolism (summer, currently on systemic anticoagulation, most recent INR 1.9 on February 28) Additional medical history: Atrial flutter with DC cardioversion and transesophageal echocardiogram. Severe tricuspid regurgitation. Heart block with permanent pacemaker placed in January of 2018 - Surgical History Additional surgical history: Anomalous pulmonary vein corrected at the age 9. Permanent pacemaker January of 2018 - Family History Additional family history: Father with liver cancer, no family history of venous thromboembolism - Social History Smoking Status: Never smoked Alcohol Use: Occasionally Drug Use: Marijuana Additional social history: Normally independent in his ADLs Review of Systems Review of Systems: ROS: 10pt was reviewed & negative except for what was stated in HPI & below Gastrointestinal: Reports: vomitting, abdominal pain, nausea Physical Exam Physical Exam: Temp Pulse Resp BP Pulse Ox 36.4 C 74 21 H 118/71 91 L 03/04/18 11:45 03/04/18 15:43 03/04/18 15:43 03/04/18 15:43 03/04/18 15:43 O2 (L/minute) 2 Constitutional: no apparent distress, appears nourished, not in pain Eyes: PERRL, anicteric sclera, EOMI Ears, Nose, Mouth, Throat: moist mucous membranes, hearing normal, poor dentition Cardiovascular: systolic murmur (1/6 at the base), No irregularly irregular, No tachycardia, No edema Respiratory: no respiratory distress, no rales or rhonchi, clear to auscultation Gastrointestinal: normoactive bowel sounds, tenderness (Mid epigastric area), No vasquez's sign, No guarding, No distension Genitourinary: no bladder tenderness, other (Bladder fullness) Neurologic: AAOx3, sensation intact bilaterally, No weakness Psychiatric: interacting appropriately, not anxious, not encephalopathic, thought process linear Lab Data & Imaging Review 03/04/18 12:10 03/04/18 12:10 WBC 25.48 10^3/uL (3.80-9.50) H 03/04/18 12:10 RBC 5.02 10^6/uL (4.40-6.38) 03/04/18 12:10 Hgb 15.1 g/dL (13.7-17.5) 03/04/18 12:10 Hct 47.3 % (40.0-51.0) 03/04/18 12:10 MCV 94.2 fL (81.5-99.8) 03/04/18 12:10 MCH 30.1 pg (27.9-34.1) 03/04/18 12:10 MCHC 31.9 g/dL (32.4-36.7) L 03/04/18 12:10 RDW 14.8 % (11.5-15.2) 03/04/18 12:10 Plt Count 205 10^3/uL (150-400) 03/04/18 12:10 MPV 9.7 fL (8.7-11.7) 03/04/18 12:10 Neut % (Auto) Not Reported 03/04/18 12:10 Lymph % (Auto) Not Reported 03/04/18 12:10 Cuming % (Auto) Not Reported 03/04/18 12:10 Eos % (Auto) Not Reported 03/04/18 12:10 Baso % (Auto) Not Reported 03/04/18 12:10 Nucleat RBC Rel Count Not Reported 03/04/18 12:10 Absolute Neuts (auto) Not Reported 03/04/18 12:10 Absolute Lymphs (auto) Not Reported 03/04/18 12:10 Absolute Monos (auto) Not Reported 03/04/18 12:10 Absolute Eos (auto) Not Reported 03/04/18 12:10 Absolute Basos (auto) Not Reported 03/04/18 12:10 Absolute Nucleated RBC Not Reported 03/04/18 12:10 Immature Gran % Not Reported 03/04/18 12:10 Seg Neutrophils % 86.0 % 03/04/18 12:10 Band Neutrophils % 5.0 % 03/04/18 12:10 Lymphocytes % 5.0 % 03/04/18 12:10 Monocytes % 4.0 % 03/04/18 12:10 Eosinophils % 0.0 % 03/04/18 12:10 Basophils % 0.0 % 03/04/18 12:10 Metamyelocytes % 0.0 % 03/04/18 12:10 Myelocytes % 0.0 % 03/04/18 12:10 Promyelocytes % 0.0 % 03/04/18 12:10 Blast Cells % 0.0 % 03/04/18 12:10 Immature Gran # Not Reported 03/04/18 12:10 Absolute Seg Neuts 21.91 10^/uL (1.70-6.50) H 03/04/18 12:10 Absolute Band Neuts 1.27 10^3/uL (0.00-0.70) H 03/04/18 12:10 Absolute Lymphocytes 1.27 10^3/uL (1.00-3.00) 03/04/18 12:10 Absolute Monocytes 1.02 10^3/uL (0.30-0.80) H 03/04/18 12:10 Absolute Eosinophils 0.00 10^3/uL (0.03-0.40) L 03/04/18 12:10 Absolute Basophils 0.00 10^3/uL (0.02-0.10) L 03/04/18 12:10 Absolute Metamyelocyte 0.00 10^3/mL (0.00-0.00) 03/04/18 12:10 Absolute Myelocytes 0.00 10^3/mL (0.00-0.00) 03/04/18 12:10 Absolute Promyelocytes 0.00 10^3/uL (0.00-0.00) 03/04/18 12:10 Absolute Plasma Cells 0.00 10^3/uL (0.00-0.00) 03/04/18 12:10 Nucleated RBCs 0 /100 WBC (0-0) 03/04/18 12:10 Absolute Blast Cells 0.00 10^3/uL (0.00-0.00) 03/04/18 12:10 Plasma Cells % 0.0 % 03/04/18 12:10 Platelet Estimate ADEQUATE (ADEQ) 03/04/18 12:10 Echinocytes 1+ H 03/04/18 12:10 Elliptocytes 1+ H 03/04/18 12:10 Sodium 140 mEq/L (135-145) 03/04/18 12:10 Potassium 4.8 mEq/L (3.3-5.0) 03/04/18 12:10 Chloride 109 mEq/L (97-110) 03/04/18 12:10 Carbon Dioxide 14 mEq/l (22-31) L 03/04/18 12:10 Anion Gap 17 mEq/L (8-16) H 03/04/18 12:10 BUN 32 mg/dL (7-23) H 03/04/18 12:10 Creatinine 1.3 mg/dL (0.7-1.3) 03/04/18 12:10 Estimated GFR 55 03/04/18 12:10 Glucose 196 mg/dL (70-100) H 03/04/18 12:10 Calcium 8.2 mg/dL (8.5-10.4) L 03/04/18 12:10 Total Bilirubin 1.2 mg/dL (0.1-1.4) 03/04/18 12:10 Conjugated Bilirubin 0.5 mg/dL (0.0-0.5) 03/04/18 12:10 Unconjugated Bilirubin 0.7 mg/dL (0.0-1.1) 03/04/18 12:10 AST 58 IU/L (17-59) 03/04/18 12:10 ALT 38 IU/L (21-72) 03/04/18 12:10 Alkaline Phosphatase 49 IU/L (38-126) 03/04/18 12:10 POC Troponin I 0.39 ng/mL (0.00-0.08) H 03/04/18 13:55 Total Protein 6.0 g/dL (6.3-8.2) L 03/04/18 12:10 Albumin 3.7 g/dL (3.5-5.0) 03/04/18 12:10 Lipase 854 IU/L (23-300) H 03/04/18 12:10 Visualized and Interpreted EKG results: Yes EKG Interpretation: Positive for: other (Paced rhythm with PVCs, T-wave inversions inferolaterally, AFib) Assessment & Plan Assessment: 67-year-old male presents with acute abdominal pain and Takaysubo's cardiomyopathy Plan: 1. Abdominal pain. Acute, new problem this provider, further workup indicated. Potential etiologies include acute pancreatitis verses acalculous cholecystitis -ultrasound demonstrating acalculous cholecystitis without any ductal dilatation , unable to fully visualize pancreas -discussed with Dr. marty oglesby, she has recommended HIDA scan for initial evaluation of gallbladder function -monitor liver panel, WBC -if HIDA scan unrevealing, will get CT with IV contrast of the abdomen -hold on surgical consult at this time, as it is not entirely clear whether patient has an issue requiring surgical evaluation -NPO, IV fluids, pain medications 2. Takaysubo cardiomyopathy. Present on echocardiogram, most likely secondary to the stress secondary to the condition above -that being said, discussed with Dr. Tr Buchanan, he and I both agree that cardiac catheterization is indicated if the patient does not have any revealing intra-abdominal pathology 3. Demand ischemia. Acute, troponin 0.39, continue cycle, monitor on telemetry 4. Acute kidney injury. Reviewed outside records including 02/10/2018 discharge summary by Peggy Gross, she reported creatinine level of 0.8 at time of discharge -unclear whether this is contrast induced nephropathy versus hypovolemia in the setting of GI losses -give IV normal saline, monitor strict I&Os, weight, creatinine 5. History of pulmonary embolism. Occurred summer 2017, currently on Coumadin -check INR -hold today's Coumadin dosage in case patient does have a surgical issue -order outside records including CT angiogram V/Q scan from [facility]. NPO with IV fluids Prophylaxis. High risk patient, Lovenox 40 if patient's INR subtherapeutic Code. Full per patient, is POCristian Disposition. Anticipated discharge is 03/05, pending further workup and resolution of above.
[2018-03-04] MEDS ORDERED: SINCALIDE 5 MCG VIAL IV ONE (19:39)
--- NOTE | 2018-03-04 19:55 | PDCARCONS ---
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 This has been complicated by atrial flutter/ sick sinus syndrome with cardioversion and a pacer about two weeks ago.He is admitted to day with acute onset abdominal pain, nausea and vomiting. He was seen yesterday at [place] for pulmonary hypertension and had a VQ scan and CT angiogram with history of recent pulmonary embolism. On arrival to the ER, he had a mild elevation in troponin adn an echocardiogram was ordered. It revealed a new anterior and apical akinetic segment with severe LV dysfunction. His ecg showed paced rhtyhm with t wave inversions inferiorly. There was no st elevation. His pacer show atrial flutter. He has no chest pain on my arrival. No shortness of breath. No PND or orthopnea. No syncope or near syncope. He denies ETOH. He has had no fever or chills No hematemesis or melena. History Information - Allergies/Home Medication List Allergies/Adverse Reactions: Sulfa (Sulfonamide Antibiotics) Allergy (Verified 03/04/18 11:50) Fever Home Medications: Aspirin [Aspirin 81mg (*)] 81 mg PO DAILY 10/20/17 [Last Taken 03/03/18] Cholecalciferol Vit D3 [Vitamin D3 2000 units tab (OTC)] 2,000 units PO DAILY [Last Taken 02/08/18] Lisinopril [Zestril 20 mg (*)] 20 mg PO DAILY06 11/24/17 [Last Taken 02/08/18] Warfarin Sodium [Coumadin 3MG (*)] 3 mg PO DAILY@16 01/14/18 [Last Taken ] Indomethacin [Indocin 25 mg (*)] 25 mg PO PRN PRN 03/04/18 [Last Taken Unknown] Warfarin Sodium [Coumadin 1MG (*)] 0.5 mg PO MOWEFRSA 03/04/18 [Last Taken Unknown] metFORMIN HCL [Metformin HCl] 500 mg PO BIDMEAL 03/04/18 [Last Taken Unknown] I have personally reviewed and updated: medical history, surgical history Past Medical History: - Past Medical History atrial fibrillation, pulmonary embolism - Surgical History Reports: pacemaker/AICD - Family History Positive for: non-pertinent - Social History Smoking Status: Never smoked Alcohol Use: Occasionally Drug Use: Marijuana Physical Exam Physical Exam: Temp Pulse Resp BP Pulse Ox 36.7 C 78 12 108/74 93 03/04/18 16:41 03/04/18 16:41 03/04/18 16:41 03/04/18 16:41 03/04/18 16:41 O2 (L/minute) 2 Constitutional: uncomfortable Eyes: anicteric sclera Ears, Nose, Mouth, Throat: dry mucous membranes Cardiovascular: systolic murmur, irregularly irregular, other (pacer healing in the left subclavein fossa.) Peripheral Pulses: 1+: carotid (R), carotid (L), femoral (R), femoral (L) Respiratory: no respiratory distress, no rales or rhonchi Gastrointestinal: tenderness Skin: warm Neurologic: AAOx3, No facial droop Psychiatric: interacting appropriately Lymph, Heme, Immunologic: no cervical LAD Lab and Imaging 03/04/18 12:10 03/04/18 12:10 WBC 25.48 10^3/uL (3.80-9.50) H 03/04/18 12:10 RBC 5.02 10^6/uL (4.40-6.38) 03/04/18 12:10 Hgb 15.1 g/dL (13.7-17.5) 03/04/18 12:10 Hct 47.3 % (40.0-51.0) 03/04/18 12:10 MCV 94.2 fL (81.5-99.8) 03/04/18 12:10 MCH 30.1 pg (27.9-34.1) 03/04/18 12:10 MCHC 31.9 g/dL (32.4-36.7) L 03/04/18 12:10 RDW 14.8 % (11.5-15.2) 03/04/18 12:10 Plt Count 205 10^3/uL (150-400) 03/04/18 12:10 MPV 9.7 fL (8.7-11.7) 03/04/18 12:10 Neut % (Auto) Not Reported 03/04/18 12:10 Lymph % (Auto) Not Reported 03/04/18 12:10 Amelia % (Auto) Not Reported 03/04/18 12:10 Eos % (Auto) Not Reported 03/04/18 12:10 Baso % (Auto) Not Reported 03/04/18 12:10 Nucleat RBC Rel Count Not Reported 03/04/18 12:10 Absolute Neuts (auto) Not Reported 03/04/18 12:10 Absolute Lymphs (auto) Not Reported 03/04/18 12:10 Absolute Monos (auto) Not Reported 03/04/18 12:10 Absolute Eos (auto) Not Reported 03/04/18 12:10 Absolute Basos (auto) Not Reported 03/04/18 12:10 Absolute Nucleated RBC Not Reported 03/04/18 12:10 Immature Gran % Not Reported 03/04/18 12:10 Seg Neutrophils % 86.0 % 03/04/18 12:10 Band Neutrophils % 5.0 % 03/04/18 12:10 Lymphocytes % 5.0 % 03/04/18 12:10 Monocytes % 4.0 % 03/04/18 12:10 Eosinophils % 0.0 % 03/04/18 12:10 Basophils % 0.0 % 03/04/18 12:10 Metamyelocytes % 0.0 % 03/04/18 12:10 Myelocytes % 0.0 % 03/04/18 12:10 Promyelocytes % 0.0 % 03/04/18 12:10 Blast Cells % 0.0 % 03/04/18 12:10 Immature Gran # Not Reported 03/04/18 12:10 Absolute Seg Neuts 21.91 10^/uL (1.70-6.50) H 03/04/18 12:10 Absolute Band Neuts 1.27 10^3/uL (0.00-0.70) H 03/04/18 12:10 Absolute Lymphocytes 1.27 10^3/uL (1.00-3.00) 03/04/18 12:10 Absolute Monocytes 1.02 10^3/uL (0.30-0.80) H 03/04/18 12:10 Absolute Eosinophils 0.00 10^3/uL (0.03-0.40) L 03/04/18 12:10 Absolute Basophils 0.00 10^3/uL (0.02-0.10) L 03/04/18 12:10 Absolute Metamyelocyte 0.00 10^3/mL (0.00-0.00) 03/04/18 12:10 Absolute Myelocytes 0.00 10^3/mL (0.00-0.00) 03/04/18 12:10 Absolute Promyelocytes 0.00 10^3/uL (0.00-0.00) 03/04/18 12:10 Absolute Plasma Cells 0.00 10^3/uL (0.00-0.00) 03/04/18 12:10 Nucleated RBCs 0 /100 WBC (0-0) 03/04/18 12:10 Absolute Blast Cells 0.00 10^3/uL (0.00-0.00) 03/04/18 12:10 Plasma Cells % 0.0 % 03/04/18 12:10 Platelet Estimate ADEQUATE (ADEQ) 03/04/18 12:10 Echinocytes 1+ H 03/04/18 12:10 Elliptocytes 1+ H 03/04/18 12:10 Sodium 140 mEq/L (135-145) 03/04/18 12:10 Potassium 4.8 mEq/L (3.3-5.0) 03/04/18 12:10 Chloride 109 mEq/L (97-110) 03/04/18 12:10 Carbon Dioxide 14 mEq/l (22-31) L 03/04/18 12:10 Anion Gap 17 mEq/L (8-16) H 03/04/18 12:10 BUN 32 mg/dL (7-23) H 03/04/18 12:10 Creatinine 1.3 mg/dL (0.7-1.3) 03/04/18 12:10 Estimated GFR 55 03/04/18 12:10 Glucose 196 mg/dL (70-100) H 03/04/18 12:10 Calcium 8.2 mg/dL (8.5-10.4) L 03/04/18 12:10 Total Bilirubin 1.2 mg/dL (0.1-1.4) 03/04/18 12:10 Conjugated Bilirubin 0.5 mg/dL (0.0-0.5) 03/04/18 12:10 Unconjugated Bilirubin 0.7 mg/dL (0.0-1.1) 03/04/18 12:10 AST 58 IU/L (17-59) 03/04/18 12:10 ALT 38 IU/L (21-72) 03/04/18 12:10 Alkaline Phosphatase 49 IU/L (38-126) 03/04/18 12:10 POC Troponin I 0.39 ng/mL (0.00-0.08) H 03/04/18 13:55 Total Protein 6.0 g/dL (6.3-8.2) L 03/04/18 12:10 Albumin 3.7 g/dL (3.5-5.0) 03/04/18 12:10 Lipase 854 IU/L (23-300) H 03/04/18 12:10 EKG Interpretation: Positive for: other (paced. No st elevation with inferior twave inversions) Echocardiogram: reviewed A/P Assessment: Impression: 67 yo male acutely ill with pancreatitis, elevated white count and possible acalculous cholecystitis. Echo suggest Takutsubo's CM with new anteroapical wall motion abnormality. This is consistent with his small bump in troponin. He is hemodynamically stable without chest pain and without ST segment elevation. For now, would continue on telemetry, agree with following troponins and clinical course. Low threshold for him tp go to the livestock laborer for diagnosis. Other issues not currently active include normally functioning pacer in the setting of persistant atrial fibrillation/flutter. Stable right heart failure with normal transaminases. Chromic anticoagulation with history of PE. Plan: Continue antionette inhibitor. telemetry follow up troponins Echo in next 7 days for LV recovery Consider angiography for instability, chest pain Review of Systems Review of Systems: - Review of Systems EENTM: no symptoms reported Respiratory: no symptoms reported Cardiac: no symptoms reported Gastrointestinal/Abdominal: abdominal pain, abdominal distention, diarrhea, nausea, vomiting Genitourinary: no symptoms Musculoskelatal: no symptoms Skin: no symptoms Neurological: no symptoms Hematologic/Lymphatic: no symptoms reported Immunologic/allergic: no symptoms reported
[2018-03-04] MEDS: HYDROmorphONE/DILAUDID 1 MG/ML INJ IVP PRN (21:21)
[2018-03-04 22:03] LABS: INR 4.03 (0.83-1.16); PROTIME(PATIENT) 38.8 SEC (12.0-15.0)
[2018-03-05] MEDS: HYDROmorphONE/DILAUDID 1 MG/ML INJ IVP PRN (00:22)
[2018-03-05 06:17] LABS: PLATELET COUNT 105 10^3/uL (150-400)
--- NOTE | 2018-03-05 07:49 | SOAPPROG ---
SOAP Progress Note Assessment/Plan: Assessment: Problem list: 1. Acute illness characterized by abdominal pain nausea vomiting elevated WBC 2. New systolic left ventricular dysfunction with regional wall motion abnormalities on echo suggestive of Takutsubo's cardiomyopathy. 3. Pulmonary hypertension secondary to longstanding congenital partial abnormal pulmonary venous return. 4. Pulmonary embolic disease 5. Sick sinus syndrome with atrial fibrillation and bradycardia with permanent pacemaker 6. Acute renal failure with rising creatinine query pre renal azotemia based on exam 7. Elevated white count. Procedures: 03/04/18 Echocardiography: Permanent pacemaker interrogation with normally functioning device. 03/05/18 07:45 Impression: Day 1. Status post admission. Troponin's are flat. Patient has no chest pain. He is stable hemodynamics. We learned today that the patient had a coronary angiogram several weeks ago [facility]. We are planning to review those records. At this point no indication for urgent angiography. Continue GI evaluation. Continue Musa inhibition for remodeling. Follow-up echocardiogram prior to discharge for LV recovery. Continue clinical follow-up Subjective: Very thirsty. Minimal abdominal pain. No further nausea or vomiting. No chest pain, shortness of breath. No PND orthopnea. Objective: Vital Signs Temp Pulse Resp BP Pulse Ox 36.7 C 76 18 119/56 L 91 L 03/05/18 07:36 03/05/18 07:36 03/05/18 07:36 03/05/18 07:36 03/05/18 07:36 Laboratory Results 03/05/18 02:28 03/05/18 02:28 03/04/18 03/05/18 03/06/18 05:59 05:59 05:59 Intake Total 4240 Output Total 40 150 Balance 4200 -150 PT 38.8 SEC (12.0-15.0) H 03/04/18 21:40 INR 4.03 (0.83-1.16) H 03/04/18 21:40 Physical Exam - Physical Exam General Appearance: cachetic, thin, other (Ill-appearing) EENT: other (Dry mucous membranes) Neck: non-tender Respiratory: lungs clear Cardiac/Chest: systolic murmur, irregularly irregular, other (Pacer pocket free of edema or erythema. Mild ecchymosis.), No JVD Abdomen: soft Skin: warm/dry Extremities: No pedal edema, No calf tenderness Neuro/Psych: alert, No facial droop ICD10 Worksheet Patient Problems: Problems Problem Status Onset Pancreatitis, acute Acute Bradycardia Acute Atrial fibrillation and flutter Acute Review of Systems - Review of Systems Constitutional: malaise, weakness. denies: chills, fever EENTM: other (Dry) Respiratory: no symptoms reported Cardiac: no symptoms reported Gastrointestinal/Abdominal: abdominal pain. denies: diarrhea, nausea Genitourinary: no symptoms Musculoskelatal: no symptoms Skin: no symptoms Neurological: no symptoms Hematologic/Lymphatic: no symptoms reported Immunologic/allergic: no symptoms reported
[2018-03-05] MEDS: CHOLECALCIFEROL VIT D3 2,000 UNITS TAB/CAP PO SCH (07:53)
[2018-03-05] MEDS: HYDROmorphONE/DILAUDID 2 MG TAB PO PRN ×2 (08:15→23:41)
[2018-03-05] MEDS ORDERED: CALCIUM GLUCONATE 50 ML IV ONE ×2 (08:42→09:15)
[2018-03-05] MEDS ORDERED: ASPIRIN 81 MG CHEWABLE TAB PO SCH (09:00)
[2018-03-05] MEDS ORDERED: CALCIUM GLUCONATE 1 GM in D5W 50 ML IV ONE (09:30)
--- NOTE | 2018-03-05 10:12 | HOSPPROG ---
Hospitalist Progress Note Assessment/Plan: Assessment: 67-year-old male presents with acute abdominal pain, type II NSTEMI, and Takutsubo's cardiomyopathy Plan: 1. Abdominal pain. Acute, unclear etiology, potential etiologies include acute pancreatitis verses acalculous cholecystitis -HIDA w/o overt cholecystitis but poor uptake into duodenum -d/w Dr. Griffiths, she recommends surgical consult to determine best abd imaging modality, either x-ray vs. CT w/o contrast vs. MRCP -monitor WBC, remains elevated, will consider Abx for possible cholecystitis -NPO, IV fluids, pain medications 2. Takutsubo cardiomyopathy. Present on echocardiogram, most likely secondary to the stress secondary to the condition above -monitor volume status closely 3. Type II NSTEMI. Trop peaked 1.3, likely 2/2 stress from underlying abd pathology -ordering outside records from [facility], reportedly cath from 12/14 -currently no chest pain -hold ASA/statin until above resolved 4. Acute kidney injury. Worsening today, further w/u indicated. Either ADRIAN ( 48hrs from recent CTA PE) vs. hypovolemic in setting of above -adjust to bicarb w/ worsening metabolic acidosis -get UA/FeNa -check bladder scan to ensure no BLEVINS -called renal consult -monitor strict I/O/weights/Cr 5. History of pulmonary embolism. Occurred summer 2017, currently on Coumadin -INR 4, likely elevated in setting of renal failure -hold today's Coumadin dosage, if needs surg, will give FFP -order outside records including CT angiogram V/Q scan from [facility] 6. Hyperkalemia. Acute, 2/2 JANIE, give calcium gluc + bicarb gtt Diet. NPO, sips/chips, IVF Prophylaxis. High risk patient, INR 4 Code. Full per patient, is MD NUNN Disposition. Upgrade to INPT admission status for reasonable medical necessity ( NSTEMI, worsening JANIE) and anticipated LOS > 48hrs. Subjective: intermittent mid epigastric pain, no vomiting, hungry/thirsty Objective: Vital Signs Temp Pulse Resp BP Pulse Ox 36.7 C 76 18 119/56 L 91 L 03/05/18 07:36 03/05/18 07:36 03/05/18 07:36 03/05/18 07:36 03/05/18 07:36 Laboratory Results 03/05/18 02:28 03/05/18 02:28 03/04/18 03/05/18 03/06/18 05:59 05:59 05:59 Intake Total 4240 Output Total 40 150 Balance 4200 -150 PT 38.8 SEC (12.0-15.0) H 03/04/18 21:40 INR 4.03 (0.83-1.16) H 03/04/18 21:40 - Physical Exam Constitutional: no apparent distress, not in pain, chronically ill appearing, No uncomfortable Cardiovascular: regular rate and rhythym, no murmur, rub, or gallop, No edema Respiratory: no respiratory distress, no rales or rhonchi, clear to auscultation Gastrointestinal: normoactive bowel sounds, tenderness (mid-epigastric area), No guarding, No distension Genitourinary: no bladder fullness Neurologic: AAOx3, sensation intact bilaterally, No weakness Psychiatric: interacting appropriately, not anxious, not encephalopathic, thought process linear ICD10 Worksheet Patient Problems: Problems Problem Status Onset Pancreatitis, acute Acute Bradycardia Acute Atrial fibrillation and flutter Acute
[2018-03-05] MEDS: SODIUM BICARBONATE 150 MEQ in D5W 1,000 ML IV SCH (11:28)
--- NOTE | 2018-03-05 12:58 | PDMN ---
Medical Necessity Medical necessity: Change to IP, as of 03/05/18, per MD & MCG M-[id number]; los >2 mn for ongoing management of NSTEMI w/takutsubo cardiomyopathy, abdominal pain of unclear etiology, worsening acute kidney injury, elevated WBC & hyperkalemia; r/ o acute pancreatitis vs cholecystitis; requiring further workup/monitoring, NPO status, GI/Surgical/Renal/Cardiology consults, IV pain meds, IVFs & med managment; hx AFIB, PE on AC, diabetes, pacemaker
--- NOTE | 2018-03-05 13:12 | GCON ---
DATE OF CONSULTATION: 03/05/2018 CHIEF COMPLAINT: Nausea. HISTORY OF PRESENT ILLNESS: This is a 67-year-old male who presented and was subsequently admitted t the [facility] yesterday. Briefly, the patient lives in [facility] yesterday morning at about 5 a.m., was in his usual state of health, felt well. He was going on about his business when, at abo ut 6 a.m., he had aggressive and progressive nausea, which was followed by protracted vomiting. The patient subsequently presented to his primary care physician's office, where he received IV hydration but, given the progressive symptoms and new development of epigastric pain, he was subsequently srivastava sferred here for further workup and management. In the emergency department, he had an EKG, a troponin leak, as well as an echocardiogram, which show ed significant stress on the heart. He also had an ultrasound, which showed significant gallbladder wall thickening without stones and pericholecystic fluid. Since his admission, the patient states th at he has honestly felt well other than being somewhat exhausted. He denies having any abdominal ruth n other than with deep palpation in the epigastrium. He states that he is fairly exhausted. He has never had pain or symptoms like this previously. He does endorse that he was at the [facility] last Thursday, where he had multiple imaging studies done, including what appears to be a CTA, had a sign ificant contrast load and has had difficulty hydrating since that time. At this point in time, his m ain complaint is minimal epigastric pain, 5/10 and exhaustion. PAST MEDICAL HISTORY: Type 2 diabetes, pulmonary embolism (recently on Coumadin), atrial flutter, se andrzej tricuspid regurg, heart block with pacer in place. 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 No other abdominal surgeries. FAMILY HISTORY: Noncontributory. SOCIAL HISTORY: Lives up in [facility], at [place] [place]. Used to drink fairly heavily in his 30s. C urrently does not take alcohol. Smokes marijuana daily. He denies any other illicit drug use. Anuj es tobacco use. Lives with his . REVIEW OF SYSTEMS: A full 10-point review was performed. PHYSICAL EXAMINATION: VITAL SIGNS: Temperature 36.5, blood pressure 114/89, heart rate 73, and he i s currently 92% on 2 L nasal cannula. CONSTITUTIONAL: He is tired, but otherwise comfortable appear ing. EYES: His pupils are equal, round, and reactive to light and accommodation. He has anicteric sclerae. His extraocular movements are intact. EARS/NOSE/MOUTH/THROAT: He has dry mucous membranes . His hearing is normal. His ears appear normal, and he has normal dentition. CARDIOVASCULAR: He is irregularly irregular. RESPIRATORY: No respiratory distress, rales or rhonchi. He is otherwise clear to auscultation. GI: He has hypoactive bowel sounds. He is somewhat tender to deep palpation in the epigastrium. He has a negative Prince sign. There is no rebound, tenderness or guarding jeff reciated. SKIN: Warm, normal color, no rashes or abrasions. MUSCULOSKELETAL: Full strength, no te nderness. Normal joint range of motion. NEUROLOGIC: He is alert and oriented x3. His cranial nerv es 2 through 12 are intact. He has no weakness, no numbness. PSYCH: He is interacting appropriatel y. He is tired, not anxious or encephalopathic. LYMPH/HEME/IMMUNOLOGIC: No cervical, groin or supr aclavicular lymphadenopathy is appreciated. IMAGING: An abdominal ultrasound, as well as a HIDA scan. These images were personally reviewed. T he ultrasound shows no cholelithiasis, normal common bile duct, a thick gallbladder wall, and a signi ficant amount of pericholecystic fluid. The HIDA scan shows brisk filling of the gallbladder itself, poor drainage of the gallbladder, and poor drainage of the biliary tree into the duodenum. LABS: White count to 26,000 today. H and H stable at 13 and 42, platelets are low at 105. Chemistr y shows a low sodium at 133, a high potassium of 5.7, an elevated creatinine at 1.9. The remainder o f his LFTs including bilirubin, AST and ALT are within normal limits. His lipase from yesterday was elevated at 854. His troponin yesterday was 1.3. It is down to 1.2 today. ASSESSMENT/PLAN: A 67-year-old male with now epigastric pain and nausea, resolved. I was asked to e valuate the patient as to whether or not I feel the gallbladder is causing this. It is unclear at th is point in time. The patient currently is asymptomatic and feels well; although, he still has a per sistent high leukocytosis. This could be related to pancreatitis. I agree with Dr. Pedraza in obtain ing further imaging of the pancreas to rule out any sort of complication, but would anticipate that i f this is pancreatitis, it would get better with conservative management. He does have some conflict ing data for his gallbladder. The ultrasound shows some concerning signs, some of which can be relat ed to acute heart failure. He has no stones. HIDA scan actually showed that the gallbladder does fi ll, so it rules out likely acute cholecystitis; although, there may be a chronic element there. At a ny rate, we will proceed with further workup, treatment of his pancreatitis. I did tell the patient that he may very well require a cholecystectomy in the future, but we may be able to plan it, given t he resolution of his symptoms, in the light of a high INR of 4 on admission, he is amenable to this. He does not want to proceed with surgery unless we have more confidence that taking his gallbladder out will relieve some of these symptoms. We will continue to follow with you. /[id number]/MODL
--- NOTE | 2018-03-05 13:45 | ASMTCASEMG ---
Living Arrangements What is your living Answers: With Spouse arrangement? Who do you live with? Type Of Residence What kind of residence do Answers: House you live in? Discharge Plan Comments Coordination Status Comments Notes: Pt is a 67 y/o man admitted for pancreatitis. Pt will most likely d/c independent when medically stable. No therapies ordered at this time. CM available for changes. Plan: Independent Date Signed: 03/05/2018 01:44 PM Electronically Signed By:ASHU Bell
--- NOTE | 2018-03-05 17:13 | GCON ---
NEPHROLOGY CONSULTATION DATE OF CONSULTATION: 03/05/2018 REASON FOR THE CONSULTATION: Acute renal failure. HPI: I have been asked to evaluate this patient regarding his acute renal failure. He is a 67-year-old gentleman with a baseline creatinine of less than 1, last documented in mid January. He also has a history of significant cardiopulmonary disease including pulmonary hypertension, severe tricuspid valve regurgitation, and right ventricular dysfunction. 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 He has a history of pulmonary emboli and is anticoagulated. Two days ago, he apparently had a CT angiogram performed through the [facility] as part of an evaluation of his pulmonary hypertension. He presented here yesterday morning following the acute onset of severe nausea and vomiting accompanied by abdominal pain. He apparently felt well prior to 6 a.m. yesterday morning when he began vomiting profusely over the next hour. He continued to have additional episodes of emesis later in the morning, therefore , presented to the ER. His creatinine on admission was 1.3, increased from 0.8 on February 10. He received 2 L of saline in the emergency room and continued to receive saline throughout the day and overnight last night. This morning, his creatinine did increase to 1.9 and his potassium was 5.7. His sodium had decreased from 140 to 133, and his CO2 dropped from 14-13. He was started on IV sodium bicarbonate and repeat labs this afternoon demonstrated a slight improvement in his creatinine to 1.7. His potassium is down to 5.3, and his serum bicarbonate is 19. Unfortunately, his serum sodium has decreased further to 129. He made essentially no urine throughout the day yesterday, but today he has noted a marked increase in his urine output. 350 cc of urine output have been charted, but he believes he has urinated more than this. He has been drinking significant amounts of oral fluids, though only 200 cc were documented yesterday. His lipase was elevated on admission and he is being evaluated for pancreatitis. His white blood cell count is also elevated at approximately 25, 000, but he is afebrile. I have been asked to evaluate him regarding his acute renal failure. PAST MEDICAL HISTORY: 1. History of anomalous pulmonary vein corrected at age 9. 2. Pulmonary hypertension with severe tricuspid valve regurgitation and right ventricular dysfunction. 3. Atrial flutter, status post DC cardioversion. 4. History of recent heart block, status post permanent pacemaker implantation. 5. History of pulmonary embolus, on anticoagulation. 6. Type 2 diabetes mellitus. PAST SURGICAL HISTORY: Correction of an anomalous pulmonary vein as a child. ALLERGIES: Sulfa. CURRENT MEDICATIONS: Aspirin 81 mg daily, vitamin D3 daily, sodium bicarbonate 150 mEq in D5W at 100 cc/hour. Other medications include hydromorphone, Zofran, and Phenergan as needed. Home medications prior to admission include lisinopril, indomethacin, and metformin. SOCIAL HISTORY: He was born in [place], but lived most of his life in the [facility] prior to moving to [place] in . [place] lives [place] [address] [place] but is contemplating moving to a lower elevation in light of his cardiopulmonary issues. He is a nonsmoker but does drink occasionally. FAMILY HISTORY: No family history of renal disease that he is aware of. His father of liver cancer, but his mother lived to be 93. REVIEW OF SYSTEMS: Positive for abdominal pain, nausea, and vomiting, as noted above. He denies any diarrhea or difficulty voiding. He denies any lower extremity edema. He has chronic dyspnea on exertion, but denies any orthopnea. Aside from the positives in the HPI, the remainder of 10 organ system review is negative. PHYSICAL EXAM: GENERAL: He is in no acute distress. VITAL SIGNS: Blood pressure 114/89, heart rate 73, oxygenation is 92% on 2 L by nasal cannula. HEENT: Sclerae anicteric. Oral mucosa is moist. Oropharynx is clear. NECK: Supple without JVD or lymphadenopathy. There are no carotid bruits. LUNGS: Have slightly diminished breath sounds throughout, but essentially clear. I do not appreciate any crackles at the bases. BACK: No CVA tenderness. HEART: Regular rate and rhythm, positive systolic murmur, no gallops or rubs. ABDOMEN : Soft and nontender with normoactive bowel sounds. I do not appreciate hepatosplenomegaly, masses, or bruits. I do not appreciate hepatojugular reflux. EXTREMITIES: There is no lower extremity edema. I cannot definitely appreciate pedal pulses, but his feet are warm and well perfused. SKIN: No skin rashes. NEURO: He is awake, alert, and appropriate. There is no facial droop. : Woodson catheter is absent. LABS: Sodium 129, potassium 5.3, chloride 100, CO2 was 19, BUN 52, creatinine 1.7, glucose 173, calcium 7.3, phosphorus 4.8, albumin 3.1. White blood cell count 26.3, hemoglobin 13.7, platelets 105. Yesterday, his white blood cell count was 25.5 with hemoglobin 15.1, and platelets 205. The urinalysis is positive for 1+ blood, trace ketones, and negative protein. Urine sediment and urine electrolytes are pending. His INR is 4.0. An abdominal ultrasound commented on a right kidney measuring 10.5 cm in length with either mild hydronephrosis or a parapelvic cyst. Left kidney was not commented upon or not visualized. Echocardiogram demonstrates left ventricular dysfunction with an ejection fraction of 30% to 35%. The right ventricle is moderately to severely dilated with decreased systolic function. Tricuspid valve regurgitation is severe. IMPRESSION/PLAN: 1. Acute renal failure: I strongly suspect this is acute tubular necrosis from contrast, probably exacerbated by volume depletion and cardiac dysfunction. His baseline renal function was normal very recently, therefore I would expect this to resolve somewhat uneventfully, but given his electrolyte disorders, he theoretically could require dialysis if he does not spontaneously recover within the next 24-48 hours. It is encouraging that his urine output appears to be increasing and his most recent creatinine was actually slightly decreased from his peak this morning. The lack of proteinuria on his urinalysis essentially excludes a diagnosis of glomerulonephritis. It would probably be prudent to definitively exclude obstruction in light of the possible mild hydronephrosis noted in his right kidney on ultrasound. A noncontrast CT of the abdomen and pelvis is planned for later today, this should definitively answer this question. I think a diagnosis of hemolytic uremic syndrome is unlikely, however, in light of the decrease in his platelet count over the past 24 hours, I will check an LDH and haptoglobin for completeness. For now, I would continue IV fluids, though I will decrease his rate to 50 cc an hour in light of his cardiac issues. He certainly does not appear at all volume overloaded at present, but has received approximately 4 L of fluid, according to his charted I's and O's. His lisinopril should not be resumed until his renal function recovers. He should obviously avoid IV contrast and nonsteroidal anti-inflammatories. I do anticipate his renal function recovering spontaneously, though it is theoretically possible that he could require acute dialysis if this does not occur within the next 24-48 hours , and this was discussed with him. 2. Hyperkalemia: This has improved with IV bicarbonate, I would continue this , albeit at a lower rate as noted above. I would not resume his lisinopril until this has definitively resolved, though I would expect it to resolve as his renal failure resolves. When he is cleared to take p.o., he should be on a low-potassium diet. 3. Hyponatremia: He has not received any hypotonic fluid that I can ascertain , therefore this is likely due to oral fluid intake, which has been significantly higher than the charted amounts. I would also expect this to resolve as his renal failure resolves, though for the time being, he should be placed on oral fluid restriction. He should not receive any hypotonic IV fluids. 4. Metabolic acidosis: I suspect this is due in part from his renal failure and also possibly due to starvation ketosis based on the ketones noted on his UA. This has improved dramatically with IV sodium bicarbonate, and the dextrose should help with the ketosis. If his hyperglycemia worsens, he should be treated with insulin. 5. Abdominal pain, nausea, and vomiting: He is being treated for pancreatitis and his symptoms appear to be improving. His elevated white count is concerning , I agree with performing a CT for more thorough evaluation. 6. Biventricular heart failure: I will decrease his IV fluids to 50 cc an hour as outlined above. His volume status actually appears quite good and he appears asymptomatic. I would not resume his SELENA inhibitor until his renal failure has resolved as noted above. Thank you for the consultation. We will follow with you. /[id number]/MODL MTDD
[2018-03-06 04:15] LABS: PLATELET COUNT 58 10^3/uL (150-400)
[2018-03-06 05:19] LABS: INR 5.61 (0.83-1.16)
[2018-03-06] MEDS: SODIUM BICARBONATE 150 MEQ in D5W 1,000 ML IV SCH (06:23)
--- NOTE | 2018-03-06 08:56 | PDCARPN ---
Cardiology Progress Note Chief Complaint: AFL New onset LV cardiomyopathy Assessment/Plan: Assessment: 1. Total anomalous pulm venous return 2. AFL 3. Permanent pacemaker 4. New onset LV failure 5. Pancreatitis 6. Renal failure 7. Thrombocytopenia 8. Auto anticoagulated Plan: -reviewed cor angio from 01/13 at [facility] - normal coronaries -new onset LV failure related to stress cardiomyopathy, unlikely pacer mediated , unlikely ACS -clinically looks better but thrombocytopenia worse, INR worse - hematology consult -no indications for intervention from cardiac standpoint, mayte Pedraza -will follow 03/06/18 08:51 Subjective: Feels better, hungry Reviewed/Discussed With: hospitalist Time Spent with Patient: greater than 25 minutes Time Spent with Patient: Greater than 25 minutes spent on this patients care, greater than 50% of time spent counseling, educating, and coordinating care regarding the above mentioned plan. Objective: Vital Signs (8 Hrs) Temp Pulse Resp BP Pulse Ox 03/06/18 08:32 36.7 C 78 12 125/62 H 88 L 03/06/18 03:48 36.5 C 75 16 106/64 88 L Intake/Output (24 Hrs) 03/04/18 03/05/18 03/06/18 11:59 11:59 11:59 Intake Total 1950 Output Total 675 Balance 1275 Intake: Oral (ml) 600 IV Infused (ml) 1350 Calcium Gluconate 50 ml @ 50 100 mls/hr IV ONCE ONE Rx#:[id number] Ns 1,000 ml @ 200 mls/hr 900 IV CONT REILLY Rx#: [id number] Sodium Bicarbonate 150 400 meq In D5w 1,000 ml @ 50 mls/hr IV CONT REILLY Rx#: [id number] Output: Urine (ml) 675 Urinal 675 Other: Weight 59.2 kg Intake Quantity Yes Sufficient Number of Voids Urinal 1 Bladder Scan Volume (ml) Urinal 185 Result Diagrams: 03/06/18 03:03 03/06/18 03:03 Telemetry: AFL, intermittent V paced ICD10 Worksheet Patient Problems: Problems Problem Status Onset Pancreatitis, acute Acute Bradycardia Acute Atrial fibrillation and flutter Acute
[2018-03-06] MEDS: CHOLECALCIFEROL VIT D3 2,000 UNITS TAB/CAP PO SCH (09:56)
--- NOTE | 2018-03-06 10:54 | SOAPPROG ---
SOAP Progress Note Assessment/Plan: Assessment: #JANIE -may be ATN from poor po intake, IV contrast and bivent cardiac dysfunction related but given low plts/high LDH, need to evaluate periph smear for schistocytes- heme to see (his coags are high but was on coumadin and Cr better which argues against). If there are significant schistocytes, would need to begin plasma exchange today-- I discussed with Dr. Pedraza in detail. -no hydro noted on CT -UA neg protein. He had low urine Na suggestive of pre-renal state (either poor po intake, cardiac dysfunction, or contrast) -Cr improving-- down 1.4 -will d/c IVF at this point (bicarb up to 22) and about to begin advancing diet , Na dropping #thrombocytopenia -heme to see to evaluate smear-- ruling out TTP (LDH >6000)-- further labs sent (Fibrinogen, haptoglobin, etc) #hyponatremia -will d/c IVF and need to ensure on fluid restriction- he was drinking a lot of hypotonic fluids previously -Na 129 follow #met acidosis -bicarb up to 22 and will d/c gtt #bivent dysfunction -recent cardiac cath neg in 01/13- ?stress induced. cardiology following -pacemaker in place #pancreatitis -no biliary duct dilation -surgery following -symptoms improved and pt requesting to eat, abd exam benign today Edwige Varma MD [facility] pager [phone] 03/06/18 12:20 Subjective: Frustrated as wants to eat- tells me he has been NPO for "65.5 hours and I'm famished" NO abd pain, sob, n/v. His plts have dropped and LDH was 6000. Good UOP, no dysuria. Objective: Vital Signs Temp Pulse Resp BP Pulse Ox 36.7 C 78 12 125/62 H 88 L 03/06/18 08:32 03/06/18 08:32 03/06/18 08:32 03/06/18 08:32 03/06/18 08:32 Laboratory Results 03/06/18 03:03 03/06/18 03:03 03/05/18 03/06/18 03/07/18 05:59 05:59 05:59 Intake Total 1950 400 Output Total 675 Balance 1275 400 PT 50.0 SEC (12.0-15.0) H 03/06/18 03:03 INR 5.61 (0.83-1.16) H* 03/06/18 03:03 Physical Exam - Physical Exam General Appearance: alert, no apparent distress EENT: other (mmm) Neck: supple Respiratory: lungs clear Cardiac/Chest: regular rate, rhythm, other (no rub) Abdomen: normal bowel sounds, non-tender, soft Skin: warm/dry Extremities: other (trace edema bilat LE) Neuro/Psych: alert, oriented x 3 ICD10 Worksheet Patient Problems: Problems Problem Status Onset Pancreatitis, acute Acute Atrial fibrillation and flutter Acute Bradycardia Acute
--- NOTE | 2018-03-06 11:09 | SOAPPROG ---
ALIE Progress Note Assessment/Plan: Assessment: chart reviewed and discussed with Dr. Calvert May need lap sary as outpatient Clearly other issues more pressing HIDA reassuring that no immediate surgical needs pressing Will see patient tomorrow Plan: 03/06/18 11:08 Objective: Vital Signs Temp Pulse Resp BP Pulse Ox 36.7 C 78 12 125/62 H 88 L 03/06/18 08:32 03/06/18 08:32 03/06/18 08:32 03/06/18 08:32 03/06/18 08:32 Laboratory Results 03/06/18 03:03 03/06/18 03:03 03/05/18 03/06/18 03/07/18 05:59 05:59 05:59 Intake Total 1950 400 Output Total 675 Balance 1275 400 PT 50.0 SEC (12.0-15.0) H 03/06/18 03:03 INR 5.61 (0.83-1.16) H* 03/06/18 03:03 ICD10 Worksheet Patient Problems: Problems Problem Status Onset Pancreatitis, acute Acute Atrial fibrillation and flutter Acute Bradycardia Acute
[2018-03-06] MEDS ORDERED: PHYTONADIONE 2.5 MG/2.5 ML ORAL UDL PO ONE (14:02)
--- NOTE | 2018-03-06 15:31 | HOSPPROG ---
Hospitalist Progress Note Assessment/Plan: Assessment: 67-year-old male presents with acute pancreatitis, type II NSTEMI, and Takutsubo 's cardiomyopathy c/b acute DIC Plan: 1. Suspected acute pancreatitis. Evidenced by initial lipase 850, mid- epigastric tenderness, leukocytosis -HIDA w/o overt cholecystitis, no GB abnl on non-contrast CT -lipase/leukocytosis downtrending w/o Abx, no indication to initiate as there is no necrotizing feature on non-cont CT -hold further IVF given development of sCHF, patient very hungry, will trial renal diet + pain/emetic Rx PRN 2. Takutsubo cardiomyopathy and acute systolic CHF exacerbation. New EF 34%, most likely secondary to the stress secondary to the condition above, also w/ RV dysfunction and severe TR -CT demonstrating bilat effusions s/p IVF for above -hold further IVF, hold diuresis given JANIE 3. Type II NSTEMI. Trop peaked 1.3, likely 2/2 stress from underlying abd pathology -[facility] cath 12/14 demonstrates clean coronaries -currently no chest pain -hold ASA re:DIC -d/w Dr. Leonardo, he does not recommend additional risk stratification at this time 4. Suspected ATN. Likely 2/2 ADRIAN + initial hypovolemic component (Elsa <5, UA w/ hyaline casts), UA not indicative of glomerularnephritis -hold further IVF as we initiate PO intake -no BLEVINS on CT -monitor strict I/O/weights/Cr 5. History of pulmonary embolism. Occurred summer 2017, currently on Coumadin -INR 5.6, likely elevated 2/2 DIC -cont hold Coumadin dosage 6. Hyperkalemia. Acute, 2/2 JANIE, stabilized 7. Suspected DIC. Acutely developing worsening thrombocytopenia, rising INR 2/2 critical illness -evaluated patient for TTP/HUS/MAHA w/ extensive consultations with Dr. Mclaughlin and Dr. Sagastume, who has reviewed a manual blood smear demonstrating no schistocytes, just neutrophil predominance and one nucleated RBC, indicative of likely DIC -given ongoing VTE risk, administer one low dose of Vit K 2.5, monitor INR -get haptoglobin/fibrinogen/retic/Tibili and trend LDH -if unable to get labs, will need PICC line for intensive monitoring -currently not bleeding, but at high risk of developing bleed -critically ill w/ high risk for worsening morbidity/mortality 8. Acute hyponatremia. 2/2 polydipsia and JANIE -counseled patient re: 1.5L/day restriction -cont monitor 9. Acute atelectasis. 2/2 effusions, present on CT, contributing to hypoxia -IS, mobilization Diet. Adv to renal diet Prophylaxis. High risk patient, INR > 2 Code. Full per patient, is MD NUNN Disposition. ADD uncertain, has become critically ill. 60 minutes of critical care time spent with patient/, specifically addressing his DIC and r/o TTP/ HUS, coordinating care w/ above providers. Subjective: ongoing low UOP, thirsty Objective: Vital Signs Temp Pulse Resp BP Pulse Ox 36.6 C 78 16 106/57 L 86 L 03/06/18 11:45 03/06/18 11:45 03/06/18 11:45 03/06/18 11:45 03/06/18 11:45 Laboratory Results 03/06/18 03:03 03/06/18 03:03 03/05/18 03/06/18 03/07/18 05:59 05:59 05:59 Intake Total 1950 400 Output Total 675 Balance 1275 400 PT 50.0 SEC (12.0-15.0) H 03/06/18 03:03 INR 5.61 (0.83-1.16) H* 03/06/18 03:03 - Physical Exam Constitutional: no apparent distress, chronically ill appearing, uncomfortable Ears, Nose, Mouth, Throat: poor dentition Cardiovascular: systolic murmur (II/ at base), irregularly irregular, tachycardia, No edema Respiratory: reduced air movement (bilat bases), inspiratory crackles, No expiratory wheeze, No bronchial breath sounds Gastrointestinal: tenderness (mid-epigastric area), No normoactive bowel sounds , No guarding, No distension Neurologic: AAOx3 Psychiatric: not encephalopathic, thought process linear, anxious, No agitated ICD10 Worksheet Patient Problems: Problems Problem Status Onset Pancreatitis, acute Acute Bradycardia Acute Atrial fibrillation and flutter Acute
--- NOTE | 2018-03-06 20:12 | PDCONSULT ---
[employer] Team Technician Note: Patient is a 67 year old male with history of DM type II for which hematology was consulted for acute thrombocytopenia. Patient presented to the ER after developing acute onset epigastric abdominal pain, nausea and profuse vomiting. Vomitus was mainly previous meal contents and then became liquidy. He went to his PCP who have him zofran and IVF. Zofran helped his nausea but pain persisted and he presented to the ER. He was found to have elevated lipase and was felt to have acute pancreatitis. Ultrasound performed the day of admission however did not demonstrated CBD distention or stones but did demonstrate evidence of acalculous cholecystitis. On presentation patient's platelet count was 205,000. On subsequent checks, his platelet count dropped to 105,000 then to 58,000 on day of consult. Hemoglobin of 13 g/dl without macrocytosis. His INR was 4 on admission (on coumadin for PE Summer 2017) and increased to 5.6 without coumadin on day of consult. Creatinine was elevated on admission, trended down to 1.4 on day of consult. Patient did not receive an heparinoids. Patient currently reports feeling well. He is rather hungry. He denies fevers, chills or night sweats. No new medication recently. Smokes marijuana but no drugs, no presumed contaminant from marijuana. No significant alcohol use. The day or so before his acute illness he had a CTA and V/Q scan at the [facility] to presumably evaluate for recent onset of symptomatic pulmonary hypertension. HPI/ROS/HX/PE/MDM HPI/ROS/HX/PE/MDM: Review of Systems: -A complete 12 point ROS was negative unless indicated in the HPI PMH -Atrial flutter with attempted but failed cardioversion -?Sick Sinus syndrome status post pacemaker -Type II DM, not on therapy at home -PE Summer 2017 (difficult to tell provoking event) PSH -Pacemaker placement -Anomalous pulmonary vein repair at age 9 SH -No history of tobacco smoking, smokes marijuana regularly, some other drugs in the past, not IV -Drinks occasionally - FH -Father had liver cancer -No other family history of cancer or blood disorders Physical Examination: Vital signs reviewed GEN: no acute distress, non toxic appearing HEENT: Pupils are equal round and reactive to light, no mouth sores, no pharyngeal swelling, poor dentition Neck: supple, no adenopathy, JVD present CV: distant heart sounds, bradycardic rate irregular rhythm, no rubs thrills or gallops, 1+ LE edema, JVD present Abdomen: distended, tympanic to percussion, no rebound or guarding, no organomegaly Extremities: warm and well perfused Skin: ecchymosis over right chest Neurologic: alert and oriented x 3, non focal examination of triage specialist - Data Points Laboratory Results: Laboratory Results 03/05/18 02:28 03/05/18 02:28 Medications Given: Cholecalciferol (Vitamin D) 2,000 units PO DAILY REILLY Stop: 09/01/18 08:59 Last Admin: 03/06/18 09:56 Dose: 2,000 units Hydromorphone HCl (Dilaudid) 0.2 - 1 mg IVP Q2 PRN PRN Reason: Pain, Severe Unable to Take PO Stop: 03/14/18 14:28 Last Admin: 03/05/18 00:22 Dose: 0.5 mg Hydromorphone HCl (Dilaudid) 2 mg PO Q4HRS PRN PRN Reason: Pain, Severe Able to Take PO Stop: 03/14/18 14:28 Last Admin: 03/05/18 23:41 Dose: 2 mg Discontinued Medications Aspirin (Aspirin) 81 mg PO DAILY [facility] Stop: 09/01/18 08:59 Last Admin: 03/05/18 07:53 Dose: 81 mg Fentanyl (Sublimaze) 50 mcg IVP ONCE ONE Stop: 03/04/18 13:25 Last Admin: 03/04/18 13:28 Dose: 50 mcg Sodium Chloride (Ns) 1,000 mls @ 0 mls/hr IV EDNOW ONE; Wide Open PRN Reason: Protocol Stop: 03/04/18 11:55 Last Admin: 03/04/18 12:01 Dose: 1,000 mls Sodium Chloride (Ns) 1,000 mls @ 0 mls/hr IV ONCE ONE; Wide Open PRN Reason: Protocol Stop: 03/04/18 13:03 Last Admin: 03/04/18 13:11 Dose: 1,000 mls Sodium Chloride (Ns) 1,000 mls @ 200 mls/hr IV CONT REILLY Stop: 08/31/18 14:29 Last Admin: 03/05/18 07:07 Dose: 1,000 mls Sodium Bicarbonate 150 meq/ (Dextrose) 1,150 mls @ 50 mls/hr IV CONT REILLY Stop: 09/01/18 08:44 Last Admin: 03/06/18 06:23 Dose: 1,150 mls Calcium Gluconate (Calcium Gluconate 1 Gm (Premix)) 50 mls @ 100 mls/hr IV ONCE ONE Stop: 03/05/18 09:11 Last Admin: 03/05/18 09:17 Dose: Not Given Calcium Gluconate 1 gm/ (Dextrose) 60 mls @ 120 mls/hr IV ONCE ONE Stop: 03/05/18 09:59 Last Admin: 03/05/18 10:18 Dose: 60 mls Phytonadione (Vitamin K) 2.5 mg PO ONCE ONE Stop: 03/06/18 14:03 Last Admin: 03/06/18 14:25 Dose: 2.5 mg A/P Assessment: Patient is a 67 year old male admitted with pancreatitis found to have stress induced cardiomyopathy and acalculous cholecystitis for which hematology was consulted for acute isolated grade II thrombocytopenia #Isolated grade II thrombocytopenia Without evidence of a hemolytic anemia and the absence of shistocytes on peripheral blood smear basically rule out a MAHA such as TTP/HUS/aHUS. There was no evidence of platelet clumping with toxic granulation, all consistent with recent marrow stress. This likely represents acute DIC in the setting of pancreatitis/stress cardiomyopathy and acalculous cholecystitis. DIC is likely the cause of his worsened coagulopathy and will likely be confirmed by elevated D-diner. Treatment is management of the underlying condition. Patient seems to be clinically improving and expect platelet count to improve with time. #Coagulopathy Likely mix of coumadin, antibiotics decreasing gut microflora, NPO status and DIC. -Agree with 2.5mg oral vitamin K, will take >12 hours to have any effect -Goal INR 2-3 given recent PE, would keep on anticoagulation given [id number] score of 3 Hematology will follow peripherally, call if questions Hadley Sagastume
[2018-03-06] MEDS: HYDROmorphONE/DILAUDID 2 MG TAB PO PRN (21:12)
[2018-03-06] MEDS: ACETAMINOPHEN 325 MG TAB PO PRN (21:13)
[2018-03-07] MEDS: HYDROmorphONE/DILAUDID 2 MG TAB PO PRN ×2 (02:50→20:29)
[2018-03-07] MEDS ORDERED: SODIUM CL NASAL 45 ML BTL EACHNARE PRN (03:00)
[2018-03-07] MEDS ORDERED: CANN-EASE 2 GM TUBE TP PRN (03:00)
[2018-03-07 04:22] LABS: PLATELET COUNT 48 10^3/uL (150-400)
[2018-03-07 05:17] LABS: INR 3.99 (0.83-1.16); PROTIME(PATIENT) 38.5 SEC (12.0-15.0)
--- NOTE | 2018-03-07 07:46 | SOAPPROG ---
SOAP Progress Note Assessment/Plan: Assessment: #JANIE -supsect pre-renal-> ATN from poor po intake, IV contrast and bivent cardiac dysfunction related -Initial concerns for possible TTP given thrombocytopenia, high LDH-- appreciate heme input- no schistos on smear and felt DIC. -no hydro noted on CT -UA neg protein. He had low urine Na suggestive of pre-renal state (either poor po intake, cardiac dysfunction, or contrast) -Cr improving-- down 1.0 today -taking po and off IVF-- discussed not overdoing with po fluids given Na 130 ( ensure low K diet as K 5.1) #thrombocytopenia -appreciate heme input- no schistos on smear and unlikely TTP-- felt DIC #hyponatremia -he was drinking a lot of hypotonic fluids previously and has decreased input. Now taking solute and should correct on his own. Discussed appropriate fluid intake with him today -Na 130 and follow #met acidosis -bicarb up to 26, bicarb gtt d/c on Sat-- follow #bivent dysfunction -recent cardiac cath neg in 01/13- ?stress induced. cardiology following -pacemaker in place #pancreatitis -no biliary duct dilation -surgery following -taking po and abd exam benign today I discussed with Dr. Milo Varma MD [facility] pager [phone] 03/07/18 08:45 Subjective: Feels much better- eating breakfast and no abd pain, n/v. No sob. Still feels weak but overall better. Objective: Vital Signs Temp Pulse Resp BP Pulse Ox 36.2 C 75 15 125/73 H 93 03/07/18 07:41 03/07/18 07:41 03/07/18 07:41 03/07/18 07:41 03/07/18 07:41 Laboratory Results 03/07/18 03:09 03/07/18 03:09 03/06/18 03/07/18 03/08/18 05:59 05:59 05:59 Intake Total 1950 790 Output Total 675 700 Balance 1275 90 PT 38.5 SEC (12.0-15.0) H 03/07/18 03:09 INR 3.99 (0.83-1.16) H 03/07/18 03:09 Physical Exam - Physical Exam General Appearance: alert, no apparent distress, other (sitting in bed eating breakfast) EENT: other (mmm) Neck: supple Respiratory: lungs clear Cardiac/Chest: regular rate, rhythm Abdomen: normal bowel sounds, non-tender, soft Skin: warm/dry Extremities: other (no edema) Neuro/Psych: alert, oriented x 3 ICD10 Worksheet Patient Problems: Problems Problem Status Onset Elevated troponin Acute Pancreatitis, acute Acute Atrial fibrillation and flutter Acute Bradycardia Acute
[2018-03-07] MEDS: CHOLECALCIFEROL VIT D3 2,000 UNITS TAB/CAP PO SCH (08:11)
--- NOTE | 2018-03-07 10:30 | SOAPPROG ---
SOAP Progress Note Assessment/Plan: Assessment: 67 yo with multiple co-morbidities Pancreatitis resolving - pain controlled and tolerating a diet Ascites AST/ALT elevated Consideration for outpatient cholecystectomy when other medical issues improve S: No abdominal pain, tolerated diet Sitting up in bed Mask in place Appears comfortable CTAB Paced BS present, soft and non tender Plan: 03/06/18 11:08 03/07/18 10:28 Objective: Vital Signs Temp Pulse Resp BP Pulse Ox 36.2 C 75 15 125/73 H 93 03/07/18 07:41 03/07/18 07:41 03/07/18 07:41 03/07/18 07:41 03/07/18 07:41 Laboratory Results 03/07/18 03:09 03/07/18 03:09 03/06/18 03/07/18 03/08/18 05:59 05:59 05:59 Intake Total 1950 790 Output Total 675 700 100 Balance 1275 90 -100 PT 38.5 SEC (12.0-15.0) H 03/07/18 03:09 INR 3.99 (0.83-1.16) H 03/07/18 03:09 ICD10 Worksheet Patient Problems: Problems Problem Status Onset Elevated troponin Acute Pancreatitis, acute Acute Atrial fibrillation and flutter Acute Bradycardia Acute
--- NOTE | 2018-03-07 10:35 | SOAPPROG ---
SOAP Progress Note Assessment/Plan: Assessment/Plan: Patient is a 67 year old male admitted with pancreatitis found to have stress induced cardiomyopathy and acalculous cholecystitis for which hematology was consulted for acute isolated grade II thrombocytopenia #Isolated grade II thrombocytopenia Without evidence of a hemolytic anemia and the absence of shistocytes on peripheral blood smear basically rule out a MAHA such as TTP/HUS/aHUS. There was no evidence of platelet clumping with toxic granulation, all consistent with recent marrow stress. This likely represents acute DIC in the setting of shock liver from stress cardiomyopathy. DIC is likely the cause of his worsened coagulopathy and is confirmed by elevated D-dimer. Treatment is management of the underlying condition. Patient seems to be clinically improving and expect platelet count to improve with time. -Patient is safe for anticoagulation currently, if gets lower than 40,000 would transfuse to goal >50,000 #Coagulopathy Likely mix of coumadin, antibiotics decreasing gut microflora, NPO status and DIC. -Goal INR 2-3 given recent PE, would keep on anticoagulation given [id number] score of 3 We will follow him peripherally at this point, please call with questions or concerns. Hadley Sagastume [phone] Objective: Vital Signs Temp Pulse Resp BP Pulse Ox 36.2 C 75 15 125/73 H 93 03/07/18 07:41 03/07/18 07:41 03/07/18 07:41 03/07/18 07:41 03/07/18 07:41 Laboratory Results 03/07/18 03:09 03/07/18 03:09 03/06/18 03/07/18 03/08/18 05:59 05:59 05:59 Intake Total 1950 790 Output Total 675 700 100 Balance 1275 90 -100 PT 38.5 SEC (12.0-15.0) H 03/07/18 03:09 INR 3.99 (0.83-1.16) H 03/07/18 03:09 Physical Exam - Physical Exam General Appearance: alert, no apparent distress EENT: PERRL/EOMI, pharynx normal, No scleral icterus (R), No scleral icterus (L) Neck: non-tender, supple, No lymphadenopathy (R), No lymphadenopathy (L) Respiratory: lungs clear, decreased breath sounds (bilateral bases ), No crackles, No rales, No rhonchi Cardiac/Chest: normal peripheral pulses, regular rate, rhythm, edema (lower extremity ), JVD, No diastolic murmur, No systolic murmur Abdomen: distended, No guarding, No rebound, No hepatomegaly, No splenomegaly Male Genitalia: deferred Rectal: deferred Skin: normal color Lymphatic: no adenopathy Extremities: normal capillary refill, pedal edema (mild LE, trace, pitting edema ) Neuro/Psych: no motor/sensory deficits, alert, normal mood/affect, oriented x 3 , No abnormal curriculum coach II-XII ICD10 Worksheet Patient Problems: Problems Problem Status Onset Disseminated intravascular coagulation Acute Elevated troponin Acute Pancreatitis, acute Acute Atrial fibrillation and flutter Acute Bradycardia Acute - ICD10 Problem Qualifiers (1) Disseminated intravascular coagulation
[2018-03-07] MEDS ORDERED: MAGNESIUM HYDROXIDE 30 ML UDCUP PO PRN (11:23)
[2018-03-07] MEDS ORDERED: LACTULOSE 20 GM/30 ML UDCUP PO PRN (11:23)
[2018-03-07] MEDS ORDERED: POLYETHYLENE GLYCOL 3350 17 GM PKT PO PRN (11:23)
[2018-03-07] MEDS ORDERED: BISACODYL 10 MG SUPP PR PRN (11:23)
--- NOTE | 2018-03-07 12:18 | PDCARPN ---
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 Permanent pacemaker 4. New onset LV failure 5. Pancreatitis 6. Renal failure 7. Thrombocytopenia 8. Auto anticoagulated Plan: -reviewed cor angio from 01/13 at [facility] - normal coronaries -new onset LV failure related to stress cardiomyopathy, unlikely pacer mediated , unlikely ACS -clinically looks better but thrombocytopenia worse, INR worse - hematology consult -no indications for intervention from cardiac standpoint -will follow with you. Will repeat echocardiogram tomorrow. 03/07/18 12:17 Subjective: Feels better, had breakfast this morning. No abdominal pain. States that he feels weak because of lack of protein. Reviewed/Discussed With: hospitalist Time Spent with Patient: greater than 25 minutes Time Spent with Patient: Greater than 25 minutes spent on this patients care, greater than 50% of time spent counseling, educating, and coordinating care regarding the above mentioned plan. Objective: Vital Signs (8 Hrs) Temp Pulse Resp BP Pulse Ox 03/07/18 11:12 36.5 C 83 19 138/71 H 90 L 03/07/18 07:41 36.2 C 75 15 125/73 H 93 03/07/18 05:59 90 L 03/07/18 05:45 80 L Intake/Output (24 Hrs) 03/06/18 03/07/18 03/08/18 11:59 11:59 11:59 Intake Total 2350 390 Output Total 675 800 Balance 1675 -410 Intake: Oral (ml) 1000 390 IV Infused (ml) 1350 Calcium Gluconate 50 ml @ 50 100 mls/hr IV ONCE ONE Rx#:[id number] Ns 1,000 ml @ 200 mls/hr 900 IV CONT REILLY Rx#: [id number] Sodium Bicarbonate 150 400 meq In D5w 1,000 ml @ 50 mls/hr IV CONT REILLY Rx#: [id number] Output: Urine (ml) 675 800 Urinal 675 800 Other: Weight 59.2 kg 59.194 kg Intake Quantity Yes Sufficient Number of Voids Urinal 1 1 Result Diagrams: 03/07/18 03:09 03/07/18 03:09 Telemetry: Atrial flutter, intermittent V pacing ICD10 Worksheet Patient Problems: Problems Problem Status Onset Pancreatitis, acute Acute Elevated troponin Acute Disseminated intravascular coagulation Acute Bradycardia Acute Atrial fibrillation and flutter Acute
[2018-03-07] MEDS ORDERED: SODIUM POLY SULF 15 GM/60 ML BOTTLE PO ONE (13:44)
--- NOTE | 2018-03-07 15:19 | ASMTCMCOM ---
CM Note CM Note Notes: Reviewed chart regarding discharge plan of care, pt's progress. PT/OT with no recommended follow up. Multiple MD disciplines consulting (Cardiology, Nephrology, Hospitalist, Surgery). Discharge needs remain unclear at this time. Anticipate pt will likely discharge home independently when stable. CM will continue to follow. Discharge Plan: To be determined Date Signed: 03/07/2018 03:18 PM Electronically Signed By:Vita Jernigan RN
--- NOTE | 2018-03-07 16:52 | HOSPPROG ---
Hospitalist Progress Note Assessment/Plan: Assessment: 67-year-old male presents with acute pancreatitis, type II NSTEMI, and Takutsubo 's cardiomyopathy c/b acute DIC Plan: 1. Suspected acute pancreatitis. Evidenced by initial lipase 850, mid- epigastric tenderness, leukocytosis -felt to be the inciting event of his other issues -HIDA w/o overt cholecystitis, no GB abnl on non-contrast CT -lipase/leukocytosis downtrending w/o Abx, no indication to initiate as there is no necrotizing feature on non-cont CT -advanced diet today w/ good tolerance 2. Takutsubo cardiomyopathy and acute systolic CHF exacerbation. New EF 34%, most likely secondary to the stress secondary to the condition above, also w/ RV dysfunction and severe TR, net positive 3kg LOS -CT demonstrating bilat effusions s/p IVF for above -repeating Echo 03/08 per cards -ongoing hypoxia and 4LPM o2 requirement, will require initiation of IV lasix and then 24hrs of monitoring effect prior to DC (given ongoing renal recovery ) 3. Type II NSTEMI. Trop peaked 1.3, likely 2/2 stress from pancreatitis -[facility] cath 12/14 demonstrates clean coronaries -currently no chest pain -hold ASA re:DIC -d/w Dr. Leonardo, he does not recommend additional risk stratification at this time 4. Suspected ATN. Likely 2/2 ADRIAN + initial hypovolemic component (Elsa <5, UA w/ hyaline casts), UA not indicative of glomerularnephritis -monitor strict I/O/weights/Cr -d/w Dr. Padilla, Cr improved to 1.0 today w/ some ongoing hyponatremia/ hyperkalemia, will hold starting diuretics for above until tomorrow and we should monitor renal fxn after starting diuretics to ensure no recurrent decompensation 5. History of pulmonary embolism. Occurred summer 2017, currently on Coumadin -rapid rise INR 2/2 DIC, improved to 4 today s/p 2.5mg Vit K -cont hold Coumadin dosage 6. Hyperkalemia. Acute, 2/2 JANIE, stabilized, will give one dose kayex today given increased dietary intake of K 7. DIC. 2/2 critical illness -currently not bleeding, but at high risk of developing bleed -plts/INR stabilizing today, cont to monitor 8. Acute hyponatremia. 2/2 polydipsia and JANIE -counseled patient re: 1.5L/day restriction 9. Acute atelectasis. 2/2 effusions, present on CT, contributing to hypoxia -IS, mobilization Diet. Adv to low fat diet w/ smoothies per patient request Prophylaxis. High risk patient, INR > 2 Code. Full per patient, is MD NUNN Disposition. ADD 03/09 if patient amenable, careful initiation of diuretics tomorrow and ongoing monitoring of coagulation profile, renal fxn. Counseled patient, , friends extensively regarding the issues above, particularly the pathophysiology of how the pancreatitis triggered the other events, mapping this out for patient's for visual learning. Subjective: minimal pain in mid epigastric area, hungry, desires a smoothie, no BM Objective: Vital Signs Temp Pulse Resp BP Pulse Ox 36.7 C 81 17 152/64 H 91 L 03/07/18 15:14 03/07/18 15:14 03/07/18 15:14 03/07/18 15:14 03/07/18 15:14 Laboratory Results 03/07/18 03:09 03/07/18 03:09 03/06/18 03/07/18 03/08/18 05:59 05:59 05:59 Intake Total 1950 790 Output Total 675 700 100 Balance 1275 90 -100 PT 38.5 SEC (12.0-15.0) H 03/07/18 03:09 INR 3.99 (0.83-1.16) H 03/07/18 03:09 - Time Spent With Patient Time Spent with Patient: greater than 35 minutes Time Spent with Patient: Greater than 35 minutes spent on this patients care, greater than 50% of time spent counseling, educating, and coordinating care regarding the above mentioned plan. - Pending Discharge Pending Discharge Within 48 Hours: Yes Pending Discharge Date: 03/09/18 Pending Discharge Time: 11:00 - Physical Exam Constitutional: no apparent distress, not in pain, chronically ill appearing, cachectic, No uncomfortable Cardiovascular: regular rate and rhythym, no murmur, rub, or gallop, No edema Respiratory: reduced air movement (bilat bases), inspiratory crackles (bilat bases), No expiratory wheeze, No bronchial breath sounds Gastrointestinal: tenderness (mild to mod depth palpation mid-epigastric area), No distension Neurologic: AAOx3 Psychiatric: interacting appropriately, not anxious, not encephalopathic, thought process linear ICD10 Worksheet Patient Problems: Problems Problem Status Onset Pancreatitis, acute Acute Elevated troponin Acute Disseminated intravascular coagulation Acute Bradycardia Acute Atrial fibrillation and flutter Acute
[2018-03-07] MEDS: ACETAMINOPHEN 325 MG TAB PO PRN (17:24)
[2018-03-07] MEDS: SENNOSIDES/DOCUSATE SODIUM TAB PO SCH (20:28)
[2018-03-08 05:29] LABS: INR 2.32 (0.83-1.16); PROTIME(PATIENT) 25.5 SEC (12.0-15.0)
[2018-03-08] MEDS: HYDROmorphONE/DILAUDID 2 MG TAB PO PRN ×2 (05:56→21:54)
[2018-03-08] MEDS: SENNOSIDES/DOCUSATE SODIUM TAB PO SCH ×2 (07:38→21:31)
[2018-03-08] MEDS: CHOLECALCIFEROL VIT D3 2,000 UNITS TAB/CAP PO SCH (07:38)
--- NOTE | 2018-03-08 10:08 | ECHO ---
[email or web address] [address] [address] Main: [phone] Fax: Transthoracic Echocardiogram Name: ROSELINE NIELSEN MR#: [id number] Study Date: 03/08/2018 Study Time: 08:53 AM Date of : 1950 Age: 67 year(s) Height: 162.6 cm (64 in.) Weight: 58.97 kg (130 lb.) BSA: 1.63 m2 Gender: Male Examination: Echo Indication: Cardiomyopathy Image Quality: Adequate Contrast: Requested by: Julius Leonardo BP: 135 mmHg/64 mmHg Heart Rate: Rhythm: Indication: Cardiomyopathy Procedure Staff Block Operator: Kimberlyn James [facility] Reading Physician: Win Ulloa MD Requesting Provider: Julius Leonardo MD Conclusions: Normal size left ventricle. Normal global systolic LV function. The ejection fraction is estimated to be 50-55 %. Severely dilated right ventricle. There is a pacemaker lead noted in the right ventricle. Reduced RV function. The left atrium is mildly dilated. The right atrium is severely dilated. Trivial mitral valve regurgitation. The aortic valve is normal in appearance and function. Severe tricuspid regurgitation is present. The pulmonary artery pressure is moderately to severely increased. Right ventricular systolic pressure measures 59mmHg. 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 The rhythm is atrial flutter with demand ventricular pacing. The patient had a previous study done 4 days prior that demonstrated anterior and apical areas of akinesis that are not appreciated on the present study. Measurements: Chambers Valvular Assessment AV/MV Valvular Assessment TV/PV Normal Normal Normal Name Value Range Name Value Range Name Value Range Ao Debra (2D): 2.6 cm (1.4 cm-2.6 AV Vmax: 1.40 m/s (1 m/s-1.7 TR Vmax: 3.69 mm/s ( - ) cm) m/s) TR PGmax: 54 mmHg ( - ) IVSd (2D): 1.0 cm (0.6 cm-1.1 AV maxP mmHg ( - ) syst. PAP: 59 mmHg ( - ) cm) AV meanP mmHg ( - ) PV Vmax: 0.80 m/s (0.6 m/s-0.9 LVDd (2D): 3.8 cm (4.2 cm-5.9 GLENN (VTI): 1.3 cm ( - ) m/s) cm) MV E Vmax: 0.81 m/s ( - ) PV PGmax: 3 mmHg ( - ) LVDs (2D): 2.9 cm (2.1 cm-4 MV PHT: 0.033 s ( - ) cm) MVA (PHT): 6.7 s ( - ) Patient: ROSELINE NIELSEN Study Date: 03/08/2018 Page 1 of 3 08:53 AM LVPWd (2D): 1.1 cm (0.6 cm-1 cm) LVOTd 1.7 cm 1.7 cm mm LVEF (MOD4): 58 % (>=55 %) EF Range: 50-55 % RVDd(2D): 4.8 cm (1.9 cm-3.8 cmmm) Continued Measurements: Chambers Valvular Assessment AV/MV Valvular Assessment TV/PV Name Value Name Value Name Value LADs: 3.9 cm MV DecTime: 106 m/s CVP (est.): 5 mmHg LADs Lon.4 cm MV E' Septal: 0.07 m/s LA Area: 25.1 cm2 MV E/E' Septal: 12.00 RA Area: 34.9 cm2 MV E/E' Lateral: 9.10 Additional Vessels Name Value Inferior Vena Cava: 2.0 cm Findings: Left Ventricle: Normal size left ventricle. No LV hypertrophy. Normal global systolic LV function. The ejection fraction is estimated to be 50-55 %. No regional wall motion abnormality. Unable to assess diastolic dysfunction. Right Ventricle: Severely dilated right ventricle. There is a pacemaker lead noted in the right ventricle. Reduced RV function. Left Atrium: The left atrium is mildly dilated. Right Atrium: The right atrium is severely dilated. Mitral Valve: The mitral valve is normal in appearance and function. Trivial mitral valve regurgitation. No mitral stenosis is present. Aortic Valve: The aortic valve is normal in appearance and function. There is no significant aortic valve regurgitation. No aortic valve stenosis is present. Tricuspid Valve: The tricuspid valve is normal in appearance and function. Severe tricuspid regurgitation is present. The pulmonary artery pressure is moderately to severely increased. Right ventricular systolic pressure measures 59mmHg. Pulmonic Valve: The pulmonic valve is normal in appearance and function. There is no pulmonic regurgitation seen. Aorta: The aorta is normal. Normal size aortic root measuring 2.6 cm. IVC: The IVC is normal sized. Pericardium: No pericardial effusion. No pleural effusion. 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 The rhythm is atrial flutter with demand ventricular pacing. (No Signature Object) Patient: ROSELINE NIELSEN Study Date: 03/08/2018 Page 2 of 3 08:53 AM Patient: ROSELINE NIELSEN Study Date: 03/08/2018 Page 3 of 3 08:53 AM [id number]
--- NOTE | 2018-03-08 11:58 | SOAPPROG ---
SOAP Progress Note Assessment/Plan: Assessment: 1. Arf: hemodynamic + contrast, now resolved. 2. HypoNa: resolving, can d/c po fluid restriction anytime. 3. HyperK: resolved. Will sign off. Plan: 03/08/18 11:56 03/08/18 11:58 Subjective: Taking po but not as much as typical. Still with some relatively mild abd discomfort. Objective: Vital Signs Temp Pulse Resp BP Pulse Ox 36.8 C 77 18 115/62 96 03/08/18 11:42 03/08/18 11:42 03/08/18 11:42 03/08/18 11:42 03/08/18 11:42 Laboratory Results 03/08/18 03:30 03/08/18 03:30 03/07/18 03/08/18 03/09/18 05:59 05:59 05:59 Intake Total 958 942 9849 Output Total 700 975 250 Balance 90 -25 900 PT 25.5 SEC (12.0-15.0) H 03/08/18 03:30 INR 2.32 (0.83-1.16) H 03/08/18 03:30 Physical Exam - Physical Exam General Appearance: no apparent distress Respiratory: lungs clear (ant) Cardiac/Chest: regular rate, rhythm Abdomen: soft Extremities: pedal edema (none) ICD10 Worksheet Patient Problems: Problems Problem Status Onset Disseminated intravascular coagulation Acute Elevated troponin Acute Pancreatitis, acute Acute Atrial fibrillation and flutter Acute Bradycardia Acute
--- NOTE | 2018-03-08 13:21 | SOAPPROG ---
ALIE Progress Note Assessment/Plan: Assessment: 1. 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 Paroxysmal AFL status post recent cardioversion now with ongoing rate controlled atrial flutter 3. Permanent pacemaker recently implanted 4. New onset LV failure with rapid normalization consistent with Takotsubo's cardiomyopathy 5. Pancreatitis 6. Renal failure; resolved 7. Thrombocytopenia 8. Acute hepatic insufficiency He appears to be making a nice recovery. At the present time he is not experiencing any ongoing cardiovascular issues. Plan: 1. Currently he does not require any further cardiovascular evaluation. 2. His outpatient medications can be gradually reinstituted during the remainder of his hospitalization including his systemic anticoagulation with warfarin. 3. He can follow up with his primary copier repair technician, Dr. Luz Duque, within 2 weeks of discharge. 4. We will sign off for now. Subjective: The patient was seen and examined. His chart was reviewed. I personally reviewed his echocardiogram. Today he states that he is feeling much better. He has not experienced any abdominal discomfort. He notes no shortness of breath. Objective: Vital Signs Temp Pulse Resp BP Pulse Ox 36.8 C 77 18 115/62 96 03/08/18 11:42 03/08/18 11:42 03/08/18 11:42 03/08/18 11:42 03/08/18 11:42 Laboratory Results 03/08/18 03:30 03/08/18 03:30 03/07/18 03/08/18 03/09/18 05:59 05:59 05:59 Intake Total 748 374 7566 Output Total 700 975 250 Balance 90 -25 900 PT 25.5 SEC (12.0-15.0) H 03/08/18 03:30 INR 2.32 (0.83-1.16) H 03/08/18 03:30 Physical Exam - Physical Exam General Appearance: WD/WN, no apparent distress Neck: non-tender, full range of motion Respiratory: lungs clear, No crackles, No rales, No rhonchi Cardiac/Chest: regular rate, rhythm, No edema, No gallop, No JVD Peripheral Pulses: 2+: carotid (R), carotid (L) Abdomen: non-tender, soft Male Genitalia: deferred Rectal: deferred Neuro/Psych: no motor/sensory deficits ICD10 Worksheet Patient Problems: Problems Problem Status Onset Pancreatitis, acute Acute Elevated troponin Acute Disseminated intravascular coagulation Acute Bradycardia Acute Atrial fibrillation and flutter Acute
--- NOTE | 2018-03-08 13:53 | ASMTCMCOM ---
CM Note CM Note Notes: 03/08/2018 Case Management Note Discussed with RN. PT recommending SNF rehab. Discussed with family. First choice is SNF in [place]. Faxed referral to [facility] in [place], [place]. Pt anticipating d/c tomorrow. Case Management d/c poc: SNF rehab pending acceptance. Case Management to follow Date Signed: 03/08/2018 01:52 PM Electronically Signed By:Jessie Lama RN
[2018-03-08] MEDS ORDERED: PROTOCOL K PHOSPHATE 1 DOSE IV PRN (14:10)
[2018-03-08] MEDS ORDERED: WARFARIN SODIUM 1 MG TAB PO SCH ×2 (14:15→16:00)
[2018-03-08] MEDS ORDERED: K PHOS 15 MMOL in D5W 250 ML IV ONE (15:00)
--- NOTE | 2018-03-08 15:30 | SOAPPROG ---
ALIE Progress Note Assessment/Plan: Assessment: 67yo M c pancreatitis, JANIE, Takotsubo - He is doing much better today, he is alert and eating a full meal with no abdominal pain - pancreatitis appears to have resolved, unclear why his LFTs bumped but they are downtrending now. - reviewed his imaging with him again. Dont think he has active cholecystitis but would like to see him as outpatient for evaluation in 2-3 weeks Plan: 03/08/18 15:28 03/08/18 15:30 Subjective: eating, has no taste Objective: Vital Signs Temp Pulse Resp BP Pulse Ox 36.8 C 77 18 115/62 96 03/08/18 11:42 03/08/18 11:42 03/08/18 11:42 03/08/18 11:42 03/08/18 11:42 Laboratory Results 03/08/18 03:30 03/08/18 03:30 03/07/18 03/08/18 03/09/18 05:59 05:59 05:59 Intake Total 559 327 3259 Output Total 700 975 250 Balance 90 -25 900 PT 25.5 SEC (12.0-15.0) H 03/08/18 03:30 INR 2.32 (0.83-1.16) H 03/08/18 03:30 ICD10 Worksheet Patient Problems: Problems Problem Status Onset Disseminated intravascular coagulation Acute Elevated troponin Acute Pancreatitis, acute Acute Atrial fibrillation and flutter Acute Bradycardia Acute
--- NOTE | 2018-03-08 15:37 | HOSPPROG ---
Hospitalist Progress Note Assessment/Plan: 67-year-old male presents with acute pancreatitis, type II NSTEMI, and Takutsubo 's cardiomyopathy c/b acute DIC #Suspected acute pancreatitis: Lipase mildly up, abd pain, leukocytosis but CT without inflammation. Improving. - Continue low fat diet #Stress cardiomyopathy: Had new onset severe LV dysfunction with rapid normalization. Precipitant is suspected pancreatitis. He is grossly euvolemic and will hold on diuresis at the moment. #Acute kidney injury: Resolved. Due to hypoperfusion in setting of above. UA not c/w GN. Monitor daily, avoid nephrotoxins. #Acute DIC: Evidence of hemolytic anemia, thrombocytopenia, elevated d-dimer but no schistos on smear making TTP/HUS less likely. Coagulation parameters improving. Monitor for bleeding, no need to continue following coag labs unless worsening. #Transaminitis: Consistent with shock liver in setting of stress cardiomyopathy. AST/ALT down-trending. - Monitor LFTs daily #Type 2 [place]: Trop peaked 1.3. Had recent coronary angiogram 11/2017 which showed clean coronaries. - Cardiology consulted and do not recommend additional risk stratification at this time - Holding aspirin with bleeding risk #History fo PE: Occurred summer 2017. - Resuming warfarin with INR goal 2-3 #Atrial flutter: S/p recent cardioversion now with rate controlled flutter. Vonir2geqe at least 2. - Warfarin as above. Not on beta nahed at home #Hyperkalemia: Resolved. Due to JANEI. Monitor daily. #Hyponatremia: Resolving. Also due to JANIE. Discontinue fluid restriction. Monitor daily. #Acute hypoxemic resp insufficiency: Related to atelectasis from pleural effusions. Wean O2 as tolerates. 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 Followed by Dr Luz Duque. #Sick sinus syndrome s/p pacemaker placement (01/2018) Diet: low fat VTE ppx: warfarin Code: full, is MDPOA Disposition: Remain inpatient for management of above issues, monitoring of coagulation profile. Subjective: Doing much better this AM. Not much appetite but wants to eat. No nausea, pain. No bleeding. Objective: Vital Signs Temp Pulse Resp BP Pulse Ox 36.8 C 77 18 115/62 96 03/08/18 11:42 03/08/18 11:42 03/08/18 11:42 03/08/18 11:42 03/08/18 11:42 Laboratory Results 03/08/18 03:30 03/08/18 03:30 03/07/18 03/08/18 03/09/18 05:59 05:59 05:59 Intake Total 570 161 8209 Output Total 700 975 250 Balance 90 -25 900 PT 25.5 SEC (12.0-15.0) H 03/08/18 03:30 INR 2.32 (0.83-1.16) H 03/08/18 03:30 - Physical Exam Constitutional: no apparent distress, appears nourished, not in pain Eyes: PERRL, anicteric sclera, EOMI Ears, Nose, Mouth, Throat: moist mucous membranes, hearing normal, ears appear normal, no oral mucosal ulcers Cardiovascular: regular rate and rhythym, no murmur, rub, or gallop Respiratory: no respiratory distress, no rales or rhonchi, clear to auscultation Gastrointestinal: normoactive bowel sounds, soft, non-tender abdomen, no palpable masses Skin: no rashes or abrasions, no fluctuance, no induration Musculoskeletal: full muscle strength, no muscle tenderness, normal joint ROM Neurologic: AAOx3, sensation intact bilaterally Psychiatric: interacting appropriately, not anxious, not encephalopathic, thought process linear ICD10 Worksheet Patient Problems: Problems Problem Status Onset Disseminated intravascular coagulation Acute Elevated troponin Acute Pancreatitis, acute Acute Atrial fibrillation and flutter Acute Bradycardia Acute
[2018-03-08] MEDS: WARFARIN SODIUM 3 MG TAB PO SCH (15:54)
[2018-03-09 05:24] LABS: INR 2.1 (0.83-1.16); PROTIME(PATIENT) 23.6 SEC (12.0-15.0)
[2018-03-09] MEDS ORDERED: K PHOS 10 MMOL in D5W 250 ML IV ONE (09:00)
[2018-03-09] MEDS: SENNOSIDES/DOCUSATE SODIUM TAB PO SCH ×3 (09:24→20:39)
[2018-03-09] MEDS: CHOLECALCIFEROL VIT D3 2,000 UNITS TAB/CAP PO SCH (09:24)
[2018-03-09] MEDS ORDERED: FUROSEMIDE 20 MG/2 ML VIAL IVP ONE (11:33)
--- NOTE | 2018-03-09 14:29 | HOSPPROG ---
Hospitalist Progress Note Assessment/Plan: 67-year-old male presents with acute pancreatitis, type II NSTEMI, and Takutsubo 's cardiomyopathy c/b acute DIC #Acute hypoxemic respiratory failure: Appears to have worsening pulmonary edema. Now requiring 10-12L/min. - Lasix 20mg IV x1 now. Plan to repeat this afternoon - Repeat BMP in afternoon, replete lytes - If renal fxn ok on above, will re-initiate home lisinopril for afterload reduction #Suspected acute pancreatitis: Resolving. Lipase mildly up, abd pain, leukocytosis but CT without inflammation. - Continue low fat diet #Stress cardiomyopathy: Had new onset severe LV dysfunction with rapid normalization. Precipitant is suspected pancreatitis. - Diuresing as above #Hyponatremia: Slightly worse this AM. Suspect fluid overloaded. - Diurese and monitor as above #Acute kidney injury: Resolved. Due to hypoperfusion in setting of above. UA not c/w GN. - Monitor BID with initiation of diuresis, ACEi #Acute DIC: Evidence of hemolytic anemia, thrombocytopenia, elevated d-dimer but no schistos on smear making TTP/HUS less likely. Coagulation parameters improving. Monitor for bleeding, no need to continue following coag labs unless worsening. #Transaminitis: Consistent with shock liver in setting of stress cardiomyopathy. AST/ALT down-trending. - Monitor LFTs daily #Type 2 [place]: Trop peaked 1.3. Had recent coronary angiogram 11/2017 which showed clean coronaries. - Cardiology consulted and do not recommend additional risk stratification at this time - Holding aspirin with bleeding risk #History fo PE: Occurred summer 2017. - Resumed warfarin with INR goal 2-3 #Atrial flutter: S/p recent cardioversion now with rate controlled flutter. [id number] at least 2. - Warfarin as above. Not on beta nahed at home #Hyperkalemia: Resolved. Due to JANIE. Monitor daily. 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 Followed by Dr Luz Duque. #Sick sinus syndrome s/p pacemaker placement (01/2018) Diet: low fat VTE ppx: warfarin Code: full, is MDPOA Disposition: Remain inpatient for management of respiratory failure with IV diuretics. High risk for decompensation. Subjective: Feeling better. Denies shortness of breath or chest pain. No leg swelling. Eating more and more each day. Objective: Vital Signs Temp Pulse Resp BP Pulse Ox 36.5 C 82 18 123/70 H 92 03/09/18 11:11 03/09/18 11:11 03/09/18 11:11 03/09/18 11:11 03/09/18 12:40 Laboratory Results 03/09/18 03:41 03/09/18 03:41 03/08/18 03/09/18 03/10/18 05:59 05:59 05:59 Intake Total 950 2200 150 Output Total 975 1150 450 Balance -25 1050 -300 PT 23.6 SEC (12.0-15.0) H 03/09/18 03:41 INR 2.10 (0.83-1.16) H 03/09/18 03:41 - Physical Exam Constitutional: no apparent distress, appears nourished, not in pain Eyes: PERRL, anicteric sclera, EOMI Ears, Nose, Mouth, Throat: moist mucous membranes, hearing normal, ears appear normal, no oral mucosal ulcers Cardiovascular: no murmur, rub, or gallop, irregularly irregular, JVD, edema (1 + at ankles) Respiratory: no respiratory distress, reduced air movement, rhonchi (diffuse), No expiratory wheeze Gastrointestinal: normoactive bowel sounds, soft, non-tender abdomen, no palpable masses Skin: other (scattered bruises) Musculoskeletal: other (Right shoulder: full ROM, 5/5 strength, mild tenderness to palpation around AC joint) Neurologic: AAOx3, sensation intact bilaterally Psychiatric: interacting appropriately, not anxious, not encephalopathic, thought process linear ICD10 Worksheet Patient Problems: Problems Problem Status Onset Disseminated intravascular coagulation Acute Elevated troponin Acute Pancreatitis, acute Acute Atrial fibrillation and flutter Acute Bradycardia Acute
[2018-03-09] MEDS: WARFARIN SODIUM 3 MG TAB PO SCH (16:19)
[2018-03-09] MEDS: ACETAMINOPHEN 325 MG TAB PO PRN (20:39)
[2018-03-10 04:23] LABS: INR 2.95 (0.83-1.16); PROTIME(PATIENT) 30.6 SEC (12.0-15.0)
[2018-03-10] MEDS: CHOLECALCIFEROL VIT D3 2,000 UNITS TAB/CAP PO SCH (08:20)
[2018-03-10] MEDS ORDERED: FUROSEMIDE 20 MG/2 ML VIAL IVP ONE ×2 (08:34→13:52)
--- NOTE | 2018-03-10 08:52 | HOSPPROG ---
Hospitalist Progress Note Assessment/Plan: 67-year-old male presents with acute pancreatitis, type II NSTEMI, and Takutsubo 's cardiomyopathy c/b acute DIC #Acute hypoxemic respiratory failure: Improving with diuresis. Had flash pulm edema yesterday requiring up to 12L. He appears to be exquisitely sensitive to volume status. - Lasix 20mg IV again this morning. Will consider repeating this PM pending repeat labs (BMP) and clinical status #Suspected acute pancreatitis: Resolved, tolerating PO. Lipase mildly up, abd pain, leukocytosis but CT without inflammation. - Continue low fat diet #Stress cardiomyopathy: Had new onset severe LV dysfunction with rapid normalization. Precipitant is suspected pancreatitis. - Diuresing as above #Hyponatremia: Worsened yesterday with diuresis but now better. - Diurese and monitor as above #Acute kidney injury: Resolved. Due to hypoperfusion in setting of above. UA not c/w GN. - Monitor BID with initiation of diuresis\ #Acute DIC: Evidence of hemolytic anemia, thrombocytopenia, elevated d-dimer but no schistos on smear making TTP/HUS less likely. Coagulation parameters improving. Monitor for bleeding, no need to continue following coag labs unless worsening. #Transaminitis: Improving. Consistent with shock liver in setting of stress cardiomyopathy. - Monitor LFTs every other day #Type 2 [place]: Trop peaked 1.3. Had recent coronary angiogram 11/2017 which showed clean coronaries. - Cardiology consulted and do not recommend additional risk stratification at this time - Holding aspirin with bleeding risk #History fo PE: Occurred summer 2017. - Resumed warfarin with INR goal 2-3, will hold today's dose #Atrial flutter: S/p recent cardioversion now with rate controlled flutter. [id number] at least 2. - Warfarin as above. Not on beta nahed at home #Hyperkalemia: Resolved. Due to JANIE. Monitor daily. 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 Followed by Dr Luz Duque. #Sick sinus syndrome s/p pacemaker placement (01/2018) PLAN: - diurese - monitor renal fxn, electrolytes - titrate down O2 - hold warfarin today Diet: low fat VTE ppx: warfarin Code: full, is MDPOA Disposition: Remain inpatient for management of respiratory failure with IV diuretics. High risk for decompensation. Plan to discharge to SNF in [place] for ongoing therapy needs, hopefully either tomorrow or Thursday. Subjective: Doing much better than yesterday from a breathing stand point. Also in better mood. Food starting to taste better, ate his whole meal. Objective: Vital Signs Temp Pulse Resp BP Pulse Ox 36.6 C 75 16 119/68 90 L 03/10/18 03:56 03/10/18 05:17 03/10/18 03:56 03/10/18 05:17 03/10/18 05:17 Laboratory Results 03/10/18 03:07 03/10/18 03:07 03/09/18 03/10/18 03/11/18 05:59 05:59 05:59 Intake Total 2200 903 Output Total 1150 1825 500 Balance 1050 -922 -500 PT 30.6 SEC (12.0-15.0) H 03/10/18 03:07 INR 2.95 (0.83-1.16) H 03/10/18 03:07 - Physical Exam Constitutional: no apparent distress, appears nourished, not in pain Eyes: PERRL, anicteric sclera, EOMI Cardiovascular: no murmur, rub, or gallop, irregularly irregular (rate controlled), JVD, No edema Respiratory: no respiratory distress, reduced air movement, other (absent breath sounds at bases, mild basilar crackles ) Skin: no rashes or abrasions, no fluctuance, no induration Neurologic: AAOx3, sensation intact bilaterally Psychiatric: interacting appropriately, not anxious, not encephalopathic, thought process linear ICD10 Worksheet Patient Problems: Problems Problem Status Onset Disseminated intravascular coagulation Acute Elevated troponin Acute Pancreatitis, acute Acute Atrial fibrillation and flutter Acute Bradycardia Acute
[2018-03-10] MEDS: SENNOSIDES/DOCUSATE SODIUM TAB PO SCH ×2 (09:21→20:57)
--- NOTE | 2018-03-10 17:40 | ASMTCMCOM ---
CM Note CM Note Notes: 03/10/2018 Case Management Note Discussed with MD. Anticipating d/c or Thursday. Faxed updates to [facility] in [place]. Case Management d/c poc: [facility] Case Management to follow. Date Signed: 03/10/2018 02:22 PM Electronically Signed By:Jessie Lama RN
[2018-03-11 04:33] LABS: INR 2.7 (0.83-1.16); PROTIME(PATIENT) 28.6 SEC (12.0-15.0)
[2018-03-11] MEDS: CHOLECALCIFEROL VIT D3 2,000 UNITS TAB/CAP PO SCH (08:11)
[2018-03-11] MEDS: SENNOSIDES/DOCUSATE SODIUM TAB PO SCH (08:54)
--- NOTE | 2018-03-11 10:10 | PDHOMEO2F ---
Home Oxygen Face to Face Home Orders: I certify that a physician or a nurse practitioner or physician's certified physician assistant has had a oewb-co-ldud encounter with this patient on the date of this order due to the diagnosis listed, which relates to the primary reason the patient requires home oxygen. Alternative treatments have been tried, or considered, and deemed ineffective. It is anticipated that supplemental oxygen will result in improvement with treatment. Home oxygen qualifying diagnosis: acute hypoxemic respiratory failure due to pulmonary edema SpO2 on room air (%): 83 Frequency of home oxygen needed: continuous Home oxygen liters per minute: 2 Home oxygen delivery device: nasal cannula Concentrator: Yes E-tanks for mobility and back up: Yes If ordering portable O2, is the patient mobile in the home?: Yes I certify that, based on these findings, the home oxygen is medically necessary for this patient for the following length of time. Length of time home oxygen needed: 99 years
--- NOTE | 2018-03-11 11:37 | PDIAF ---
- Diagnosis Code Status: Full Code - Medication Management Discharge Medications: Medications to Continue on Transfer Aspirin [Aspirin 81mg (*)] 81 mg PO DAILY 10/20/17 [Last Taken 03/03/18] Cholecalciferol Vit D3 [Vitamin D3 2000 units tab (OTC)] 2,000 units PO DAILY [Last Taken 02/08/18] Warfarin Sodium [Coumadin 3MG (*)] 3 mg PO DAILY@16 01/14/18 [Last Taken ] Acetaminophen [Tylenol 325mg (*)] 650 mg PO Q4HRS PRN tab 02/10/18 [Last Taken Unknown] Indomethacin [Indocin 25 mg (*)] 25 mg PO PRN PRN 03/04/18 [Last Taken Unknown] Warfarin Sodium [Coumadin 1MG (*)] 0.5 mg PO MOWEFRSA 03/04/18 [Last Taken Unknown] metFORMIN HCL [Metformin HCl] 500 mg PO BIDMEAL 03/04/18 [Last Taken Unknown] Furosemide [Lasix 20 MG (*)] 20 mg PO DAILY #14 tab 03/11/18 [Last Taken Unknown ] Lisinopril 10 mg PO DAILY #30 tablet 03/11/18 [Last Taken Unknown] Discharge Medications: Refer to the Discharge Home Medication list for PRN reason. - Orders Services needed: Physical Therapy, Occupational Therapy Additional Instructions: Here are your discharge instructions. 1. I have prescribed you furosemide (also called lasix) which is a diuretic that you should take for the next 2 weeks. I encourage you to monitor your weight daily. If you gain more than 3 pounds in 1 day or 5 pounds in 3 days, please call your freelance programmer/app developer and let them know. 2. I have decreased your lisinopril from 20mg to 10mg daily so your blood pressure isn't too low while you are on the diuretic. 3. You are being discharged with supplemental oxygen, currently at 2 liters/ min. Continue wearing this until instructed by a physician. 4. I have ordered a blood draw to occur on Thursday, 03/15 while you are at rehab. This is to monitor your kidneys and electrolytes. 5. You should resume your warfarin dose that you were on prior to this hospitalization and get your INR checked as usual. 6. Follow up with primary freelance programmer/app developer, Dr. Luz Duque, within 2 weeks of discharge. 7. I encourage you to see your primary care doctor within the next few weeks. 8. Please keep your appointment with Dr Leonardo on 04/16. 9. Lastly, Dr Calvert with general surgery would like to see you within the next month as well. Please call his office to set up an appointment. - Labs/Radiology BMP Date: 03/15/18 (monitor renal fxn and electrolytes) - Follow Up Care Current Providers and Referrals: Giovani Harper MD [Primary Care Provider] - As per Instructions Stephon Calvert MD [Medical Doctor] - follow up in 2 weeks (follow up as outpatient, likely will recommend cholecystectomy as outpatient )
--- NOTE | 2018-03-11 11:40 | PDHOMEO2F ---
Home Oxygen Face to Face Home Orders: I certify that a physician or a nurse practitioner or physician's human resource assistant has had a [id number] encounter with this patient on the date of this order due to the diagnosis listed, which relates to the primary reason the patient requires home oxygen. Alternative treatments have been tried, or considered, and deemed ineffective. It is anticipated that supplemental oxygen will result in improvement with treatment. Home oxygen qualifying diagnosis: chronic cor pulmonale Home oxygen secondary diagnosis: pulmonary edema SpO2 on room air (%): 83 Frequency of home oxygen needed: continuous Home oxygen liters per minute: 2 Home oxygen delivery device: nasal cannula Concentrator: Yes E-tanks for mobility and back up: Yes If ordering portable O2, is the patient mobile in the home?: Yes I certify that, based on these findings, the home oxygen is medically necessary for this patient for the following length of time. Length of time home oxygen needed: 99 years
[2018-03-11 12:11] VITALS: BP 112/64
--- NOTE | 2018-03-11 12:16 | ASMTLACE ---
LACE Length of stay for Answers: 7-13 days current admission Acuity / Level of Answers: Yes Care: Did the patient have an inpatient admission? Comorbidities - select Answers: Diabetes (uncontrolled or all that apply controlled) Other Notes: HTN; HLD; AFib; Hx of P E # of Emergency department Answers: 1-2 visits in the last 6 months Score: 11 Date Signed: 03/11/2018 12:08 PM Electronically Signed By:ASHU Bell
--- NOTE | 2018-03-11 12:51 | ASMTDCNOTE ---
Case Management Discharge Discharge Order Complete? Answers: Yes Patient to Obtain Answers: Other Notes: [facility] Medications Transportation Arranged Answers: Other Notes: [facility] will Pick (Date 03/11/2018 03:30 PM & Time) EMTALA Complete Answers: No Case Management Transport Answers: No Form Complete Faxed Final Orders Answers: Yes Agency/Facility Transfer Answers: Yes Report Printed & Faxed to Receiving Agency Family Notified Answers: Yes Discharge Comments Notes: Pts case discussed w/ Dr. Ulloa and Jewels RN. Pt is being discharged today to [facility]. DC orders sent. CM provided MITZI Donis w/ phone number to give report. CM met w/ pt and his for dispo planning. CM available for changes. Plan: [facility] Date Signed: 03/11/2018 12:33 PM Electronically Signed By:ASHU Bell
--- NOTE | 2018-03-11 12:52 | ASDISCHSUM ---
Discharge Information Plan Status:SNF Medically Cleared to Leave:03/11/2018 Discharge Date:03/11/2018 CM D/C Disposition: ADT D/C Disposition:Retirement Facility Projected Discharge Date:03/11/2018 11:00 AM Transportation at D/C: Discharge Delay Reason: Follow-Up Date:03/11/2018 11:00 AM Discharge Slot: Final Diagnosis: Placement Information Referral Type:*[facility]NF Referral ID:[id number] Provider Name:[facility] Address 1:[address] Address 2: City:[place] Selection Factors: State:[place] Patient Contact Information Contact Name:SIMONJACKIEHADLEY Relationship: Address: [address] Work Phone: [facility] Alternate Phone: [facility]/[place] Code:[place] [address] Email: Financial Information Financial Class:Medicare Primary Plan Desc:MEDICARE INPATIENT Primary Plan Number:[id number] Secondary Plan Desc:AARP/MDR SUPPLEMENT Secondary Plan Number:[id number] Assessment Information LACE LACE Length of stay for Answers: 7-13 days current admission Acuity / Level of Answers: Yes Care: Did the patient have an inpatient admission? Comorbidities - select Answers: Diabetes (uncontrolled or all that apply controlled) Other Notes: HTN; HLD; AFib; Hx of P E # of Emergency department Answers: 1-2 visits in the last 6 months Score: 11 Date Signed: 03/11/2018 12:08 PM Electronically Signed By:ASHU Bell [facility] Initial CM Assessment Living Arrangements What is your living Answers: With Spouse arrangement? Who do you live with? Type Of Residence What kind of residence do Answers: House you live in? Discharge Plan Comments Coordination Status Comments Notes: Pt is a 67 y/o man admitted for pancreatitis. Pt will most likely d/c independent when medically stable. No therapies ordered at this time. CM available for changes. Plan: Independent Date Signed: 03/05/2018 01:44 PM Electronically Signed By:ASHU Bell [facility] CM Progress Note CM Note CM Note Notes: Reviewed chart regarding discharge plan of care, pt's progress. PT/OT with no recommended follow up. Multiple MD disciplines consulting (Cardiology, Nephrology, Hospitalist, Surgery). Discharge needs remain unclear at this time. Anticipate pt will likely discharge home independently when stable. CM will continue to follow. Discharge Plan: To be determined Date Signed: 03/07/2018 03:18 PM Electronically Signed By:Vita Jernigan RN [facility] CM Progress Note CM Note CM Note Notes: 03/08/2018 Case Management Note Discussed with RN. PT recommending SNF rehab. Discussed with family. First choice is SNF in [place]. Faxed referral to [facility] in [place] [address] [facility]. Pt anticipating d/c tomorrow. Case Management d/c poc: SNF rehab pending acceptance. Case Management to follow Date Signed: 03/08/2018 01:52 PM Electronically Signed By:Jessie Lama RN [facility] CM Progress Note CM Note CM Note Notes: 03/10/2018 Case Management Note Discussed with . Anticipating d/c or Thursday. Faxed updates to [facility] in [place]. Case Management d/c poc: [facility] Case Management to follow. Date Signed: 03/10/2018 02:22 PM Electronically Signed By:Jessie Lama RN Case Management Discharge Plan Note Case Management Discharge Discharge Order Complete? Answers: Yes Patient to Obtain Answers: Other Notes: [facility] Medications Transportation Arranged Answers: Other Notes: [facility] will Pick (Date 03/11/2018 03:30 PM & Time) NAYELI Complete Answers: No Case Management Transport Answers: No Form Complete Faxed Final Orders Answers: Yes Agency/Facility Transfer Answers: Yes Report Printed & Faxed to Receiving Agency Family Notified Answers: Yes Discharge Comments Notes: Pts case discussed w/ Dr. Ulloa and MITZI Donis. Pt is being discharged today to [facility]. DC orders sent. CM provided MITZI Donis w/ phone number to give report. CM met w/ pt and his for dispo planning. CM available for changes. Plan: [facility] [place] Date Signed: 03/11/2018 12:33 PM Electronically Signed By:ASHU Bell Intervention Information Intervention Type:*LEROY-Signed Date of Service:03/05/2018 11:04 AM Patient Type:Observation Staff Member:Allie Lofton Hours: Discipline: Severity: Comment:
--- NOTE | 2018-03-11 16:58 | PDDCSUM ---
Discharge Summary Discharge Summary: Date of Admission: 03/04/2018 Date of Discharge: 03/11/2018 Disposition: SNF for ongoing PT/OT needs Consultants: cardiology, nephrology, general surgery, hematology Procedures/Studies: TTEx2, HIDA scan, CT abd/pelvis without contrast, abdominal US Discharge Diagnoses: 1. Suspected acute pancreatitis, which lead to a. Stress-induced cardiomyopathy and type 2 HI b. Acute kidney injury c. Disseminated intravascular coagulation d. Hyponatremia 2. Acute hypoxemic respiratory failure 2/2 pulmonary edema 3. Transaminitis 2/2 congestive hepatopathy 4. Partial anomalous pulmonary venous return 5. Pulmonary hypertension (WHO class 3/4) 6. History of PE on anticoagulation 7. Atrial flutter 8. Sick sinus syndrome s/p pacemaker placement Brief Hospital Course: 67yo M with partial anomalous pulmonary venous return and ASD s/p surgical repair at age 9 complicated by RV dysfunction, pulmonary hypertension, atrial flutter s/p recent cardioversion, sick sinus syndrome s/p recent pacemaker placement, pulmonary embolus (also contributing to PH), and exposure to IV contrast material day prior to admission (had CTA chest at [facility]) presented with acute onset abdominal pain and nausea. The etiology of this was thought to be pancreatitis as he had an elevated lipase and significant leukocytosis; however , he did not have radiographic evidence of pancreatic inflammation. Nonetheless , this inflammatory state lead to a cascade of conditions including: stress cardiomyopathy (echo #1 with new anterior and apical akinesis with severe LV dysfunction) with demand coronary ischemia (trop peak 1.3), acute kidney injury , and acute DIC. He received a significant amount of IV fluids as supportive care; however, he then developed acute hypoxemic respiratory failure (requiring up to 12L O2) due to pulmonary edema, as well as transaminitis secondary to venous congestion. Cardiology was consulted; they did not recommend coronary angiography as he recently had one performed at [facility] with no obstructive coronary disease. In the days leading up to his discharge, his pancreatitis (or whatever was causing his abd pain) had settled down. He resumed PO intake. His coagulation parameters and platelets improved. He was diuresed with good effect and his renal function returned to baseline. LFTs were also improving. Additionally a repeat TTE showed normalization of his LV dysfunction. We have added furosemide 20mg qd to his medication regimen as he still had some diuresis to go: his discharge weight was 58kg, up from 56kg on admission. He is to follow up with his tack maker in 1 week (03/18) to assess his volume status and repeat labs if necessary. Additionally, we decreased his lisinopril from 20 to 10mg daily. He was discharged on 2L O2 continuously to a SNF for ongoing PT/ OT. Of note, he was in rate controlled atrial flutter throughout this admission. He has follow up with Dr Leonardo in mid-March. Lastly, his warfarin was initially held during this hospitalization due to supratherapeutic INR and DIC however this was resumed at his previous dose at discharge (his INR was 2.7) . Medications: Please refer to EMR for complete list. Changes this hospitalization include addition of furosemide 20mg daily and reduction in lisinopril dose from 20 to 10mg daily. Follow Up Plan: 1. Start taking furosemide 20mg daily. Instructed to weigh himself every morning and keep log. 2. BMP on Thursday, 03/15, to monitor renal function and electrolytes 3. Continue supplemental oxygen at 2L continuously until evaluated by physician 4. See primary tack maker Dr Luz Duque on 03/18 to assess volume status 5. PCP visit in early March 6. Clinic visit with Dr Julius Leonardo on 04/16 to address atrial flutter 7. Clinic visit with Dr Calvert to discuss potential cholecystectomy as outpatient Physical Exam: Vitals and telemetry reviewed, normotensive with HR controlled in atrial flutter and occasional PVCs. He is alert and oriented. Regular rate and rhythm on cardiac exam with 3/6 systolic murmur at lower sternal border. Lungs with decreased breath sounds at bases and improved crackles. Abdomen soft , nontender. No lower extremity edema. JVD at 9cmH20 while at 60 degrees. Well healed scar on mid-chest.
== END 2018-03-11 15:50 | DRG 438 ==
LOC: EDUNIT# → EDBD → F2W 15:55 → OBSVTOIN 03-05 10:08
PROVIDERS: ADMIT Internal Medicine; ATTEND Internal Medicine
DX: K85.90 Acute pancreatitis without necrosis or infection, unspecified (principal); I21.A1 Myocardial infarction type 2; D65 Disseminated intravascular coagulation [defibrination syndrome]; J96.01 Acute respiratory failure with hypoxia; I51.81 Takotsubo syndrome; E87.1 Hypo-osmolality and hyponatremia; E87.6 Hypokalemia; I27.20 Pulmonary hypertension, unspecified; R74.0 Nonspecific elevation of levels of transaminase and lactic acid dehydrogenase [LDH]; E11.9 Type 2 diabetes mellitus without complications; I48.92 Unspecified atrial flutter; I49.5 Sick sinus syndrome; E78.5 Hyperlipidemia, unspecified; Z86.711 Personal history of pulmonary embolism; Z95.0 Presence of cardiac pacemaker; Z79.01 Long term (current) use of anticoagulants
CPT/HCPCS: 80307; 83010-90; 84484-PO; 96374; 97112-GP; 97116-GP; 97161-GP; 97164-GP; 97166-GO; 97530-GP; 97535-GO; A9537; G0378; G0480; G8978-GP-CI; G8979-GP-CH; G8979-GP-CI; G8981-GP-CI; G8982-GP-CI; G8987-GO-CI; G8988-GO-CI; J0610; J1170; J1940; J2805; J3010

== ENCOUNTER → 2018-04-16 | Outpatient (CLI) | payer OTHER, MEDICARE | LOC: BHFA 09:45 | PROVIDERS: ATTEND Internal Medicine Cardiovascular Disease | DX: I48.92 Unspecified atrial flutter (principal) ==

== ENCOUNTER → 2018-06-18 | Outpatient (CLI) | payer OTHER, MEDICARE | LOC: BHFA 09:15 | PROVIDERS: ATTEND Internal Medicine Cardiovascular Disease | DX: I48.92 Unspecified atrial flutter (principal); I44.1 Atrioventricular block, second degree; Z95.0 Presence of cardiac pacemaker ==

== ENCOUNTER 2018-08-02 10:51 | Observation (INO) | payer OTHER, MEDICARE ==
[2018-08-02] MEDS ORDERED: NS 1,000 ML IV ONE (10:58)
[2018-08-02] MEDS ORDERED: fentaNYL 100 MCG/2 ML INJ ONE ×3 (11:32→11:58)
[2018-08-02] MEDS ORDERED: PROPOFOL 200 MG/20 ML VIAL ONE ×2 (11:32→12:01)
[2018-08-02] MEDS ORDERED: ROCURONIUM 50 MG/5 ML VIAL ONE ×3 (11:34→14:27)
[2018-08-02 11:47] LABS: PLATELET COUNT 135 10^3/uL (150-400)
[2018-08-02 12:02] LABS: INR 1.43 (0.83-1.16); PROTIME(PATIENT) 17.6 SEC (12.0-15.0)
--- NOTE | 2018-08-02 12:25 | PDANEPAE ---
ANE History of Present Illness a. 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, repaired surgically at age 9 - Pulmonary History Hx COPD: No Hx Recent Upper Respiratory Infection: No Hx Oxygen in Use at Home: No Hx Sleep Apnea: Yes - Endocrine History Hx Diabetes: Yes Hypothyroid: No Hyperthyroid: No Obesity: no - Other Health History Other Health History: Gout - Chronic Pain History Chronic Pain: No ANE Review of Systems Review of systems is: negative Review of Systems: - Exercise capacity METS (RN): 4 METS ANE Patient History - Allergies Allergies/Adverse Reactions: Sulfa (Sulfonamide Antibiotics) Allergy (Verified 03/04/18 11:50) Fever contrast Allergy (Uncoded 08/02/18 11:58) - Home Medications Home medications: home medication list seen and reviewed Home Medications: Aspirin [Aspirin 81mg (*)] 81 mg PO DAILY 10/20/17 [Last Taken 08/02/18 06:00] Cholecalciferol Vit D3 [Vitamin D3 2000 units tab (OTC)] 2,000 units PO DAILY [Last Taken 08/01/18 06:00] Warfarin Sodium [Coumadin 3MG (*)] 3 mg PO DAILY@16 01/14/18 [Last Taken 17:00] metFORMIN HCL [Metformin HCl] 500 mg PO BIDMEAL 03/04/18 [Last Taken 08/01/18 18 :00] Lisinopril [Zestril 20 mg (*)] 20 mg PO DAILY 07/27/18 [Last Taken 08/01/18 06: 00] - Anes Hx Anes Hx: no prior problems - Smoking Hx Smoking Status: Never smoked ANE Labs/Vital Signs - Labs Result Diagrams: 08/02/18 11:30 08/02/18 11:30 - Vital Signs Height: 162.56 cm Weight: 57.606 kg ANE Physical Exam - Airway Neck exam: FROM Mallampati Score: Class 2 Mouth exam: poor dentition - Pulmonary Pulmonary: no respiratory distress - Cardiovascular Cardiovascular: regular rate and rhythym - ASA Status ASA Status: III ANE Anesthesia Plan Anesthesia Plan: general endotracheal anesthesia
--- NOTE | 2018-08-02 12:56 | PDGENHP ---
History & Physical Chief Complaint: afl Relevant Physical Exam: s1s2 irreg. cta ao3 Cardiorespiratory Assessment: sx correction of tapvr. sp pacemaker. for ablation of AFL
[2018-08-02] MEDS ORDERED: MIDAZOLAM 2 MG/2 ML VIAL IVP ONE (13:25)
--- NOTE | 2018-08-02 13:27 | POSTANESTH ---
Post Anesthetic Evaluation Cardiovascular Status: Normal, Stable Respiratory Status: Normal, Stable Level of Consciousness/Mental Status: Can Participate in Eval, Mildly Sleepy, Arousable Pain Control: Adequate, Prn Tx Ordered Nausea/Vomiting Control: Adequate, Prn Tx Ordered Complications Possibly Related to Anesthesia: None Noted
[2018-08-02] MEDS ORDERED: DEXAMETHASONE 4 MG/ML VIAL ONE (13:36)
[2018-08-02] MEDS ORDERED: SUGAMMADEX SODIUM 200 MG/2 ML VIAL IVP ONE (13:36)
[2018-08-02] MEDS ORDERED: ONDANSETRON 4 MG/2 ML VIAL ONE (13:36)
[2018-08-02] MEDS ORDERED: LIDOCAINE 1% 300 MG/30 ML SDV ONE (13:38)
[2018-08-02] MEDS ORDERED: BUPIVACAINE 0.75% 10 ML SDV ONE (13:38)
[2018-08-02] MEDS ORDERED: HEPARIN 10,000 UNIT/10 ML MDV (1,000 UNIT/ML) ONE (13:38)
[2018-08-02] MEDS ORDERED: ISOPROTERENOL HCL/D5W 0.2 MG/50 ML BAG IV ONE (13:38)
[2018-08-02] MEDS ORDERED: MIDAZOLAM 2 MG/2 ML VIAL ONE (13:43)
[2018-08-02] MEDS ORDERED: ALBUTEROL 3 ML DEYVIAL IH PRN (14:42)
[2018-08-02] MEDS ORDERED: ONDANSETRON 4 MG/2 ML VIAL IVP PRN (14:42)
[2018-08-02] MEDS ORDERED: HYDROCODONE/APAP 5/325 TAB PO PRN (14:42)
[2018-08-02] MEDS ORDERED: fentaNYL 100 MCG/2 ML INJ IVP PRN (14:42)
[2018-08-02] MEDS ORDERED: oxyCODONE IR 5 MG TAB PO PRN (14:42)
[2018-08-02] MEDS ORDERED: HYDROmorphONE/DILAUDID 2 MG/ML INJ IVP PRN (14:42)
[2018-08-02] MEDS ORDERED: PROMETHAZINE HCL 25 MG/ML INJ IVP PRN (14:42)
[2018-08-02] MEDS ORDERED: NALOXONE HCL 0.4 MG/ML INJ IVP PRN (14:42)
[2018-08-02] MEDS ORDERED: ACETAMINOPHEN 500 MG TAB PO PRN (14:42)
[2018-08-02] MEDS ORDERED: METOCLOPRAMIDE 10 MG/2 ML VIAL IVP PRN (14:42)
[2018-08-02] MEDS ORDERED: WARFARIN SODIUM 3 MG TAB PO SCH (19:00)
[2018-08-02] MEDS ORDERED: ACETAMINOPHEN 325 MG TAB PO PRN (20:50)
[2018-08-03 05:14] LABS: PLATELET COUNT 109 10^3/uL (150-400)
[2018-08-03] MEDS ORDERED: LISINOPRIL 20 MG TAB PO SCH (09:00)
[2018-08-03] MEDS ORDERED: ASPIRIN 81 MG CHEWABLE TAB PO SCH (09:00)
[2018-08-03] MEDS ORDERED: CHOLECALCIFEROL VIT D3 2,000 UNITS TAB/CAP PO SCH (09:00)
[2018-08-03] MEDS ORDERED: FUROSEMIDE 20 MG TAB PO SCH (09:00)
--- NOTE | 2018-08-03 09:57 | EPPROC ---
Electrophysiology Procedure Note: Procedure date 08/02/18 ELECTROPHYSIOLOGIC STUDY AND CATHETER MEDIATED ABLATION FOR SUBEUSTACHIAN ISTHMUS DEPENDENT COUNTERCLOCKWISE ATRIAL FLUTTER AND ATTEMPTED ABLATION FOR MACROREENTRANT RIGHT ATRIAL TACHYCARDIA INDICATION: Recurrent atrial flutter Anomalous pulmonary venous return with surgical repair as a child Previously implanted permanent pacemaker Severe tricuspid regurgitation Fatigue with atrial arrhythmias PROCEDURES PERFORMED: 59905-04 EP evaluation with RA/RV/LA pace/record, with arrhythmia induction 60892-86 EP evaluation with RA/RV pace record, insert/reposition catheter, with arrhythmia induction 29603 SVT ablation Second arrhythmia 22509 3D mapping Fluoroscopy Catheters & Anesthesia: The patient arrived in the Electrophysiology Laboratory in the fasting state. The right clavicular region, right groin, and left groin area were prepped and draped in the usual sterile manner. Anesthesiologist administered general anesthesia. Appropriate non-invasive blood pressure, pulse oximetry and end- tidal CO2 monitoring was established. All catheters were placed percutaneously using the modified Seldinger technique , and advanced into position under fluoroscopic guidance. One #7 Filipino deflectable octapolar electrode catheter was advanced to the His-bundle position via the R femoral vein (2mm spacing; except the proximal ring which was 25cm from the tip used for unipolar recordings). This catheter was then moved to the proximal coronary sinus. Heparin was administered to keep ACT > 250 seconds. Programmed stimulation was performed from the right atrium, coronary sinus ( left atrium) and right ventricle. Parahisian pacing demonstrated all retrograde conduction over the AV node. On arrival to the Electrophysiology Laboratory the patient was in atrial flutter , cycle length 235 milliseconds. Entrainment mapping from lateral TA, septal TA, proximal CS and distal CS confirmed cavotricuspid isthmus dependent atrial flutter. In preparation for ablation of typical atrial flutter, a high-resolution 3D (3 dimensional) Carto electroanatomical map of the sub-Eustachian isthmus and right atrium was obtained during pacing of the posterolateral coronary sinus. For ablation of typical atrial flutter, one mobi sheath was placed in the right atrium. A #8 Filipino deflectable quadrapolar electrode catheter (2mm-5mm-2mm spacing) with 3.[address] SF and location sensor for the [employer] mapping system was inserted in the long sheath and advanced to the right atrium. Radiofrequency applications were applied between the tricuspid annulus at 0630 oclock as seen in the [place] view and the inferior vena cava. This achieved conduction block across the isthmus. Tachycardia changed to AT #2, CL 245 ms. High-resolution map of the right atrium was obtained using mapping catheter. Ablation along the septal cava tricuspid isthmus anterior to the coronary sinus ostium increased the tachycardia cycle length to 265 milliseconds. AT#3, CL 265 milliseconds was mapped using high-resolution 3D activation mapping. Entrainment mapping in the posteroseptal area showed PPI less than 15 milliseconds in this area. We targeted scar channels in the posteroseptal area and attempted to extend the scar to the SVC and IVC but the tachycardia remained inducible. Cardioversion was performed and atrial tachycardia 3 was converted to sinus rhythm. The catheters were removed. Protamine was administered. Sheaths were removed in the EP lab after applying subcutaneous purse string suture. The patient was transferred to the cardiovascular holding area in stable condition. There were no apparent complications. Pacemaker leads in thresholds remained unchanged post ablation. CONCLUSIONS: 1. Cavotricuspid isthmus dependent counterclockwise atrial flutter. 2. Successful catheter mediated ablation of cavotricuspid isthmus achieving bi -directional conduction block across cavotricuspid isthmus. 3. 2 separate macroreentrant right atrial tachycardias as noted above. Atrial tachycardia in the high posteroseptal area could not be successfully ablated. 4. No apparent complications. Patient Problems: Problems Problem Status Onset Pancreatitis, acute Acute Elevated troponin Acute Disseminated intravascular coagulation Acute Bradycardia Acute Atrial fibrillation and flutter Acute
[2018-08-03 12:10] VITALS: BP 118/76
--- NOTE | 2018-08-03 12:44 | ECHO ---
[email or web address] [address] [address] Main: [phone] Fax: Transthoracic Echocardiogram Name: ROSELINE NIELSEN MR#: [id number] Study Date: 08/03/2018 Study Time: 07:45 AM Date of : 1950 Age: 68 year(s) Height: 162.6 cm (64 in.) Weight: 57.61 kg (127 lb.) BSA: 1.61 m2 Gender: Male Examination: Echo Indication: Post EP, Pacemaker Image Quality: Contrast: Requested by: Julius Leonardo BP: 118 mmHg/68 mmHg Heart Rate: Rhythm: Pacemaker rhythm Indication: Post EP, Pacemaker Procedure Staff Supervisor Beehive Kiln: Lenin Tovar RDCS Reading Physician: Juluis Leonardo MD Requesting Provider: Conclusions: Low normal left ventricular systolic function. The ejection fraction is visually estimated to be 50 %. Mildly to moderately dilated right ventricle. There is a pacemaker lead noted in the right ventricle. The left atrium is severely dilated. There is a known right to left shunt with agitated bubble study.. The right atrium is severely dilated. Mild mitral valve regurgitation is present. Severe tricuspid regurgitation is present. The pulmonary artery pressure is moderately increased. Mild pulmonic valve regurgitation is noted. Measurements: Chambers Valvular Assessment AV/MV Valvular Assessment TV/PV Normal Normal Normal Name Value Range Name Value Range Name Value Range Ao Debra (MM): 3.0 cm (2.2 cm-3.7 AV Vmax: 1.19 m/s (1 m/s-1.7 TR Vmax: 3.34 mm/s ( - ) cm) m/s) TR PGmax: 45 mmHg ( - ) IVSd (2D): 1.0 cm (0.6 cm-1.1 AV maxP mmHg ( - ) syst. PAP: 50 mmHg ( - ) cm) LVOT Vmax: 0.81 m/s (0.7 m/s-1.1 PV Vmax: 1.66 m/s (0.6 m/s-0.9 LVDd (2D): 4.1 cm (4.2 cm-5.9 m/s) m/s) cm) MV E Vmax: 0.91 m/s ( - ) PV PGmax: 11 mmHg ( - ) LVDs (2D): 3.1 cm (2.1 cm-4 MV A Vmax: 0.29 m/s ( - ) cm) MV E/A: 3.14 ( - ) LVPWd (2D): 1.0 cm (0.6 cm-1 cm) LVEF (MOD4): 52 % (>=55 %) Visual EF: 50 % RVDd(2D): 4.0 cm (1.9 cm-3.8 cmmm) Patient: ROSELINE NIELSEN Study Date: 08/03/2018 Page 1 of 2 07:45 AM Continued Measurements: Chambers Valvular Assessment AV/MV Valvular Assessment TV/PV Name Value Name Value Name Value LADs Lon.6 cm MV E' Septal: 0.07 m/s CVP (est.): 5 mmHg LA Area: 24.9 cm2 MV E/E' Septal: 13.70 LA Volume: 85 ml MV E/E' Lateral: 11.20 LA Volume Index: 52.8 ml/m2 Findings: Left Ventricle: Normal size left ventricle. Low normal left ventricular systolic function. The ejection fraction is visually estimated to be 50 %. Right Ventricle: Mildly to moderately dilated right ventricle. Normal RV function. There is a pacemaker lead noted in the right ventricle. Left Atrium: The left atrium is severely dilated. There is a known right to left shunt with agitated bubble study.. Right Atrium: The right atrium is severely dilated. Mitral Valve: The mitral valve is normal in appearance. Mild mitral valve regurgitation is present. Aortic Valve: The aortic valve is normal in appearance and function. There is no significant aortic valve regurgitation. Tricuspid Valve: The tricuspid valve appears normal. Severe tricuspid regurgitation is present. The pulmonary artery pressure is moderately increased. Pulmonic Valve: The pulmonic valve is normal in appearance. Mild pulmonic valve regurgitation is noted. Aorta: The aorta is normal. Pericardium: No pericardial effusion. (No Signature Object) Patient: ROSELINE NIELSEN Study Date: 08/03/2018 Page 2 of 2 07:45 AM [id number]
--- NOTE | 2018-08-04 03:23 | GDS ---
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 Atrial flutter. 2. Supraventricular tachycardia. 3. Severe tricuspid regurgitation. 4. Permanent pacemaker. DISCHARGE DIAGNOSES: 1. Atrial flutter, status post successful ablation. 2. Two separate macro reentrant right atrial tachycardias. One atrial tachycardia was successfully ablated, a second high posteroseptal atrial tachycardia could not be successfully ablated. HOSPITAL COURSE: Patient presented 08/02/2018, for an electrophysiology study and atrial flutter abl ation in the setting of recurrent atrial flutter associated with fatigue. He underwent successful ca theter-mediated ablation for atrial flutter. EP study also demonstrated 2 separate macro reentrant r ight atrial tachycardias. One atrial tachycardia was able to be successfully ablated. The second at rial tachycardia had a high posteroseptal location and could not be successfully ablated. There were no interprocedural complications, and the patient has been up ambulating around his room this [facility] without complications. He is appropriate and stable for discharge home today. CURRENT PHYSICAL EXAMINATION: GENERAL: Alert and oriented x4. No apparent distress. VITAL SIGNS: Blood pressure 110/54, heart rate 74, respiratory rate 70, SpO2 94% on room air, temp 36.6 degrees C elsius. RESPIRATORY: Lungs are clear to auscultation without adventitious breath sounds. CARDIAC: Normal S1 and S2, no S3 or S4. Rhythm is regular. ABDOMEN: Normoactive bowel sounds times all 4 q uadrants, soft, no masses or tenderness. SKIN: [place], warm, dry without cyanosis, clubbing, or perip heral edema. EXTREMITIES: Right pursestring suture removed intact without evidence of hematoma, red ness, oozing, swelling, or warmth. Pulses 2+ bilaterally, no edema. LABORATORY STUDIES DRAWN TODAY: WBCs 10.26. CBC and BMP are otherwise stable compared to preprocedu re. Troponin 1.75. Elevated troponin and WBCs are to be expected in the postprocedure setting. PROCEDURES: Electrophysiology study, atrial flutter ablation, and atrial tachycardia ablation as men tioned above. Preliminary echocardiogram done this morning demonstrates normal left ventricular syst olic function without new wall motion abnormalities or pericardial effusion. Stable severe tricuspid regurgitation. Electrocardiogram this morning demonstrates V-paced rhythm with frequent PVCs and wi thout new ST-T wave or MI interval abnormalities. DISCHARGE DISPOSITION: Patient will be discharged home in stable condition. He is under activity re strictions as below. DISCHARGE MEDICATIONS: Please see discharge medication reconciliation sheet for full details. Ashley encarnacion note that he has been restarted on Coumadin 6 hours post procedure. DISCHARGE INSTRUCTIONS: Post atrial flutter and atrial tachycardia ablation instructions reviewed wi th patient in detail. We discussed activity restrictions including lifting no more than 10 pounds an d avoidance of submerged bathing for 10 days. He will get up and walk around every 45 minutes for 45 days. We also reviewed bleeding precautions, medication compliance, monitoring for signs and sympto ms of infection, and monitoring for sustained arrhythmia. Patient will be relocating to [place] within the next 6 weeks, and we have recommended followup with Dr Tracee Ballard at [facility]. We also highly encouraged the patient to have a thorough dental examination at this time. At the time of discharge, patient verbalizes understanding of all dischar ge instructions without questions or concerns. He has a followup visit scheduled in 4 weeks, and he will contact the clinic with any new or concerning symptoms prior to his upcoming visit. /[id number]/MODL
--- NOTE | 2018-08-04 16:39 | CPEKG ---
Test Reason : OPEN Blood Pressure : / mmHG Vent. Rate : 084 BPM Atrial Rate : 283 BPM P-R Int : 211 ms QRS Dur : 144 ms QT Int : 442 ms P-R-T Axes : -79 104 -73 degrees QTc Int : 523 ms Atrial-sensed ventricular-paced complexes Nonspecific intraventricular conduction delay Nonspecific repol abnrm, anterolateral leads Atrial flutter present Confirmed by Figueroa Falcon ([id number]) on 08/04/2018 4:38:39 PM Referred By: Julius Leonardo Confirmed By:Figueroa Falcon
--- NOTE | 2018-08-04 16:43 | CPEKG ---
Test Reason : OPEN Blood Pressure : / mmHG Vent. Rate : 080 BPM Atrial Rate : 070 BPM P-R Int : 267 ms QRS Dur : 100 ms QT Int : 462 ms P-R-T Axes : 094 052 -63 degrees QTc Int : 533 ms Atrial-paced complexes Multiform ventricular premature complexes Prolonged VA interval Low voltage, extremity leads Abnormal R-wave progression, early transition Abnormal T, consider ischemia, inferior leads Atrial flutter was noted on prior ECG. Confirmed by Figueroa Falcon ([id number]) on 08/04/2018 4:43:18 PM Referred By: Julius Leonardo Confirmed By:Figueroa Falcon
== END 2018-08-03 14:06 | disposition home or self-care (01) ==
LOC: FCATH 10:51 → F2W 17:30
PROVIDERS: ADMIT Internal Medicine Cardiovascular Disease; ATTEND Internal Medicine Cardiovascular Disease
DX: I48.92 Unspecified atrial flutter (principal); I47.1 Supraventricular tachycardia; I36.1 Nonrheumatic tricuspid (valve) insufficiency; R53.83 Other fatigue; I10 Essential (primary) hypertension; G47.30 Sleep apnea, unspecified; M10.9 Gout, unspecified; Z79.01 Long term (current) use of anticoagulants; Z87.74 Personal history of (corrected) congenital malformations of heart and circulatory system; Z95.0 Presence of cardiac pacemaker; Z88.2 Allergy status to sulfonamides
CPT/HCPCS: 93005; 93306; 93312; 93613; 93621; 93653; C1731; C1732; C1766; J1644; J2250; J2405; J2704; J3010; J1100